=== PATIENT | male | born 1950 | race Hispanic/Latino ===

== ENCOUNTER 2017-11-17 01:41 | Inpatient (IN) | payer MEDICARE ==
[2017-11-17] MEDS ORDERED: Heparin25000 units/250ml 1/2NS 25,000 UNITS/250 ML BAG IV STA (01:51)
--- NOTE | 2017-11-17 01:51 | C.PDOC ---
History Of Present Illness pt presents with sudden onset of chest pain which started around 11pm. When ems arrived, 324asa and sl ntg given. poss iwmi Time Seen by Provider: 11/17/17 01:51 Chief Complaint (Nursing): Chest Pain History Per: Patient, EMS History/Exam Limitations: no limitations Onset/Duration Of Symptoms: Hrs Current Symptoms Are (Timing): Worse Context: Other Severity: Severe Pain Scale Rating Of: 9 Quality: Sharp, Tightness, Pressure Associated Symptoms: Nausea. denies: Dyspnea Modifying Factors: None Exacerbating Factors: None Alleviating Factors: None Nitro Therapy Administered: 2, Per EMS Recent travel outside of the [place]: No Additional History Per: EMS Past Medical History Reviewed: Historical Data, Nursing Documentation, Vital Signs Vital Signs: Last Vital Signs Temp 98.5 F 11/17/17 01:45 Pulse 108 H 11/17/17 01:45 Resp 18 11/17/17 01:45 BP 126/96 H 11/17/17 01:45 Pulse Ox 100 11/17/17 01:59 Family History: States: No Known Family Hx - Social History Hx Alcohol Use: No Hx Substance Use: No Review Of Systems Constitutional: Negative for: Fever, Chills Eyes: Negative for: Redness ENT: Negative for: Throat Pain Cardiovascular: Positive for: Chest Pain. Negative for: Palpitations Respiratory: Negative for: Shortness of Breath Gastrointestinal: Positive for: Nausea. Negative for: Vomiting, Abdominal Pain Genitourinary: Negative for: Dysuria Musculoskeletal: Negative for: Back Pain Skin: Negative for: Rash Neurological: Negative for: Weakness Psych: Positive for: Anxiety Physical Exam - Physical Exam Appears: In Acute Distress Skin: Warm, Dry Head: Normacephalic Eye(s): bilateral: Normal Inspection Oral Mucosa: Moist Neck: Supple Chest: Symmetrical Cardiovascular: Rhythm Regular Respiratory: No Rales, Rhonchi (few), No Wheezing Gastrointestinal/Abdominal: Soft, No Tenderness, Distention, No Guarding, Hernia (mid line) Back: Normal Inspection Extremity: Normal ROM Extremity: Bilateral: Atraumatic Pulses: Left Dorsalis Pedis: Normal, Right Dorsalis Pedis: Normal Neurological/Psych: Oriented x3, Normal Speech, Normal Cognition Gait: Unable To Assess ED Course And Treatment - Laboratory Results Result Diagrams: 11/17/17 01:55 11/17/17 01:55 ECG: Interpreted By Me, Viewed By Me ECG Rhythm: ST/T Changes (acyte inf wall mi) O2 Sat by Pulse Oximetry: 100 Pulse Ox Interpretation: Normal - Radiology CXR: Interpreted by Me, Viewed By Me Progress Note: spoke with dr fabian @ 1:36 AM Code heart activated. Pt continues with severe left sided chest pain, vitals stable Critical Care Time - Critical Care Note Total Time (in mins): 30 Documented critical care: time excludes all time spent performing seperately billable procedures. Disposition Discussed With DrIvone: Roni Wise Comment: accepted the pt on his service and took over the care at 2:14 AM Doctor Will See Patient In The: Hospital Counseled Patient/Family Regarding: Studies Performed, Diagnosis - Disposition Disposition: HOSPITALIZED Disposition Time: 01:51 Condition: GUARDED Forms: [facility] (Nepali) - POA Present On Arrival: Poor Glycemic Control Core Measure Indicators: Code Heart - Clinical Impression Clinical Impression: Acute inferior myocardial infarction Decision To Admit - Pt Status Changed To: Hospital Disposition Of: Inpatient - Admit Certification Admit to Inpatient:: After my assessment, the patient will require hospitalization for at least two midnights. This is because of the severity of symptoms shown, intensity of services needed, and/or the medical risk in this patient being treated as an outpatient. - InPatient: Physician Admission Certification: I certify that this patient requires 2 or more midnights of care for the following reason:: After my assessment, the patient will require hospitalization for at least two midnights. This is because of the severity of symptoms shown, intensity of services needed, and/or the medical risk in this patient being treated as an outpatient. - . Bed Request Type: ICU Admitting Physician: Roni Wise Patient Diagnosis: Acute inferior myocardial infarction
[2017-11-17 01:53] VITALS: BMI 32.1
[2017-11-17 02:02] LABS: BASO # 0.1 K/uL (0.0-0.2); BASO % 0.5 % (0.0-2.0); EOS # 0.3 K/uL (0.0-0.7); EOS % 2.3 % (0.0-4.0); HEMOGLOBIN 12.5 g/dL (12.0-18.0); LYMPH # 1.4 K/uL (1.0-4.3); LYMPH % 12.9 % (20.0-40.0); MEAN CELL VOLUME 83.2 fL (80.0-94.0); MEAN CORPUSCULAR HEMOGLOBIN 27.8 pg (27.0-31.0); MEAN CORPUSCULAR HGB CONC 33.4 g/dL (33.0-37.0); MEAN PLATELET VOLUME 8.1 fL (7.2-11.7); MONO # 0.8 K/uL (0.0-0.8); MONO % 7.5 % (0.0-10.0); NEUT # 8.5 K/uL (1.8-7.0); NEUT % 76.8 % (50.0-75.0); NRBC % 0.1 % (0.0-2.0); RBC 4.51 Mil/uL (4.40-5.90); RED CELL DISTRIBUTION WIDTH 15.9 % (11.5-14.5); WHITE BLOOD COUNT 11.1 K/uL (4.8-10.8)
[2017-11-17 02:05] LABS: INR 1.1; PROTHROMBIN TIME 12.7 SECONDS (9.7-12.2)
[2017-11-17 02:10] LABS: ALB/GLOB RATIO 1.1 (1.0-2.1); ALBUMIN 4.1 g/dL (3.5-5.0); ALT/SGPT 28 U/L (21-72); AST/SGOT 36 U/L (17-59); BLOOD UREA NITROGEN 19 mg/dL (9-20); CALCIUM 9.4 mg/dl (8.6-10.4); GFR AFRICAN-AMERICAN > 60; GFR NON-AFRICAN AMERICAN 55
[2017-11-17 02:23] LABS: B-TYPE NATRIURETIC PEPTIDE 295 pg/mL (0-900); CK-MB 1.97 ng/mL (0.0-3.38)
[2017-11-17] MEDS ORDERED: Midazolam 2 MG/2 ML VIAL ONE (02:25)
[2017-11-17] MEDS ORDERED: Morphine 4 MG/ML VIAL IV STA (02:30)
[2017-11-17] MEDS ORDERED: Phenylephrine 10 mg/ml Inj ONE (02:45)
[2017-11-17] MEDS ORDERED: Lidocaine 2 Grams in D5W 2,000 MG/500 ML BAG IV ONE (02:52)
[2017-11-17] MEDS ORDERED: Lidocaine 2 Grams in D5W 2,000 MG/500 ML BAG IV SCH (03:15)
[2017-11-17] MEDS ORDERED: oxyCODONE 5 mg Immediate Release Tab PO PRN (03:21)
--- NOTE | 2017-11-17 03:37 | CP.PCM.CON ---
History of Present Illness - History of Present Illness History of Present Illness: 67 M with hx of HTN, DM, Tobacco use presented with Acute Anterior wall STEMI Acute systolic CHF (EF 15%) V Tach (In Mid Level Developer) S/P Cath and LAD JESSICA on IABP Plan: IABP Bed rest IV Heparin with protocol, ASA, Brilinta, Statin, b abad, ARB, ISS, pepcid, Lidocaine drip ROMIs Daily EKGs Monitor lytes, CBC, check lipids ECHO LifeVest 1. L Main: Patent 2. LAD Prox 100% (PCI with 4.0 x 18 JESSICA) 3. L Cx: patent 4. RCA: Dominnat and patent 5. LV EF: 15%, Dilated ischemic CMP Past Patient History - Past Social History Smoking Status: Light Smoker < 10 Cigarettes Daily - ENDOCRINE/METABOLIC Hx Endocrine Disorders: Yes Hx Diabetes Mellitus Type 2: Yes - PSYCHIATRIC Hx Substance Use: No - SURGICAL HISTORY Hx Surgeries: No Meds Allergies/Adverse Reactions: Allergies Allergy/AdvReac Type Severity Reaction Status Date / Time Penicillins Allergy Verified 11/17/17 01:44 - Medications Medications: Current Medications Acetaminophen (Tylenol 325mg Tab) 650 mg PO Q6 PRN PRN Reason: Pain, Mild (1-3) Aspirin (Ecotrin) 81 mg PO DAILY OLINDA Carvedilol (Coreg) 3.125 mg PO BID OLINDA Famotidine (Pepcid) 20 mg PO BID OLINDA Heparin Sodium/Sodium Chloride (Heparin 90371 Units/250ml 1/2 Normal Saline) 25 ,000 units in 250 mls @ 20.412 mls/hr IV .[id number] PRN; Protocol; 18 UNITS/KG/HR PRN Reason: ADJUST RATE PER PROTOCOL Lidocaine HCl/Dextrose (Lidocaine 2 Grams In D5w) 2,000 mg in 500 mls @ 30 mls/ hr IV .[id number] OLINDA; 2 MG/MIN PRN Reason: Protocol Insulin Aspart (Novolog) 0 unit SC ACHS OLINDA PRN Reason: Protocol Insulin Human Regular (Novolin R) unit SC ACHS OLINDA PRN Reason: Protocol Losartan Potassium (Cozaar) 25 mg PO DAILY OLINDA Oxycodone HCl (Oxycodone Immediate Release Tab) 5 mg PO Q6 PRN PRN Reason: Pain, moderate (4-7) Rosuvastatin Calcium (Crestor) 40 mg PO HS OLINDA Ticagrelor (Brilinta) 90 mg PO BID OLINDA Results - Vital Signs Recent Vital Signs: Last Vital Signs Temp 98.5 F 11/17/17 01:45 Pulse 136 H 11/17/17 02:04 Resp 12 11/17/17 02:04 BP 127/86 11/17/17 02:04 Pulse Ox 100 11/17/17 02:17 - Labs Result Diagrams: 11/17/17 01:55 11/17/17 01:55 Labs: Laboratory Results - last 24 hr 11/17/17 11/17/17 11/17/17 01:48 01:55 01:55 WBC 11.1 H RBC 4.51 Hgb 12.5 Hct 37.5 MCV 83.2 MCH 27.8 MCHC 33.4 RDW 15.9 H Plt Count 244 MPV 8.1 Neut % (Auto) 76.8 H Lymph % (Auto) 12.9 L [place] % (Auto) 7.5 Eos % (Auto) 2.3 Baso % (Auto) 0.5 Neut # (Auto) 8.5 H Lymph # (Auto) 1.4 [place] # (Auto) 0.8 Eos # (Auto) 0.3 Baso # (Auto) 0.1 PT 12.7 H INR 1.1 APTT 33 Sodium 144 Potassium 5.5 H Chloride 106 Carbon Dioxide 22 Anion Gap 21 H BUN 19 Creatinine 1.3 Est GFR ( Amer) > 60 Est GFR (Non-Af Amer) 55 Random Glucose 284 H Hemoglobin A1c Calcium 9.4 Total Bilirubin 0.4 AST 36 ALT 28 Alkaline Phosphatase 139 H Total Creatine Kinase 76 CK-MB (Mass) 1.97 Troponin I 0.1130 NT-Pro-B Natriuret Pep 295 Total Protein 7.9 Albumin 4.1 Globulin 3.8 Albumin/Globulin Ratio 1.1 Blood Type Antibody Screen 11/17/17 11/17/17 01:55 01:56 WBC RBC Hgb Hct MCV MCH MCHC RDW Plt Count MPV Neut % (Auto) Lymph % (Auto) [place] % (Auto) Eos % (Auto) Baso % (Auto) Neut # (Auto) Lymph # (Auto) [place] # (Auto) Eos # (Auto) Baso # (Auto) PT INR APTT Sodium Potassium Chloride Carbon Dioxide Anion Gap BUN Creatinine Est GFR ( Amer) Est GFR (Non-Af Amer) Random Glucose Hemoglobin A1c 8.3 H Calcium Total Bilirubin AST ALT Alkaline Phosphatase Total Creatine Kinase CK-MB (Mass) Troponin I NT-Pro-B Natriuret Pep Total Protein Albumin Globulin Albumin/Globulin Ratio Blood Type O POSITIVE Antibody Screen Negative
[2017-11-17] MEDS ORDERED: Metoprolol 1 mg/ml Inj IVP ONE (03:56)
[2017-11-17] MEDS ORDERED: Iodixanol 320 MG/ML 200 ML BOTTLE IV ONE (04:04)
--- NOTE | 2017-11-17 04:05 | CP.PCM.CON ---
Addendum entered and electronically signed by Oliver Chandra DO 11/17/17 18:04: Update during the day: Patient with congestion and shortness of breath in the early afternoon. CXR revealed venous congestion. Dyspnea relieved with IV lasix and being placed on BiPAP. Nitro drip was also started to reduce strain on the heart. Per cardiology , continue Lidocaine drip until tomorrow morning due to V-tach seen during PCI. Cardiology will evaluate the echocardiogram images before deciding when to remove the balloon pump. Per echo report: * patient with EF 20-25% * severe hypokinesis of anteroapical wall * Right ventricle dilated but function preserved. * Hyperechoic area anterior to right ventricle may be a loculated effusion Patient to be evaluated for Life Vest. Original Note: History of Present Illness - History of Present Illness History of Present Illness: 67 y/o male with pmx of DM, h/o DVT, h/o DM and h/o smoking presents to [facility] with c/o chest pain. Patient was dx with STEMI s/p cath. Post cath, patient denies any chest pain. As per Dr. 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 -In ICU, patient was on IABP, with IV lidoacine and IV heparin Pmx: DM, h/o DVT, h/o kidney stones Allergic: PCn and "spinach" Social history: (+)smoking Review of Systems - Review of Systems Review of Systems: as per HPI Past Patient History - Past Medical History & Family History Past Medical History?: Yes Past Family History: Reviewed and not pertinent - Past Social History Smoking Status: Light Smoker < 10 Cigarettes Daily - ENDOCRINE/METABOLIC Hx Endocrine Disorders: Yes Hx Diabetes Mellitus Type 2: Yes - PSYCHIATRIC Hx Substance Use: No - SURGICAL HISTORY Hx Surgeries: No Meds Allergies/Adverse Reactions: Allergies Allergy/AdvReac Type Severity Reaction Status Date / Time Penicillins Allergy Verified 11/17/17 01:44 - Medications Medications: Current Medications Acetaminophen (Tylenol 325mg Tab) 650 mg PO Q6 PRN PRN Reason: Pain, Mild (1-3) Aspirin (Ecotrin) 81 mg PO DAILY OLINDA Carvedilol (Coreg) 3.125 mg PO BID OLINDA Famotidine (Pepcid) 20 mg PO BID OLINDA Heparin Sodium/Sodium Chloride (Heparin 86668 Units/250ml 1/2 Normal Saline) 25 ,000 units in 250 mls @ 20.412 mls/hr IV .[id number] PRN; Protocol; 18 UNITS/KG/HR PRN Reason: ADJUST RATE PER PROTOCOL Lidocaine HCl/Dextrose (Lidocaine 2 Grams In D5w) 2,000 mg in 500 mls @ 30 mls/ hr IV .[id number] OLINDA; 2 MG/MIN PRN Reason: Protocol Insulin Aspart (Novolog) 0 unit SC ACHS OLINDA PRN Reason: Protocol Insulin Human Regular (Novolin R) unit SC ACHS OLINDA PRN Reason: Protocol Losartan Potassium (Cozaar) 25 mg PO DAILY OLINDA Metoprolol Tartrate (Lopressor) 5 mg IVP ONCE ONE Stop: 11/17/17 03:57 Oxycodone HCl (Oxycodone Immediate Release Tab) 5 mg PO Q6 PRN PRN Reason: Pain, moderate (4-7) Rosuvastatin Calcium (Crestor) 40 mg PO HS OLINDA Ticagrelor (Brilinta) 90 mg PO BID OLINDA Patient does not remember his home medications name or dosage Physical Exam - Head Exam Head Exam: ATRAUMATIC, NORMAL INSPECTION, NORMOCEPHALIC - Eye Exam Eye Exam: EOMI - ENT Exam ENT Exam: Mucous Membranes Moist - Respiratory Exam Respiratory Exam: Clear to Auscultation Bilateral, NORMAL BREATHING PATTERN - Cardiovascular Exam Cardiovascular Exam: Tachycardia, +S1, +S2 - GI/Abdominal Exam GI & Abdominal Exam: Normal Bowel Sounds, Soft - Extremities Exam Extremities exam: Positive for: normal inspection Additional comments: right femoral IABP no bleeding at site Results - Vital Signs Recent Vital Signs: Last Vital Signs Temp 98.5 F 11/17/17 01:45 Pulse 136 H 11/17/17 02:04 Resp 12 11/17/17 02:04 BP 127/86 11/17/17 02:04 Pulse Ox 100 11/17/17 02:17 - Labs Result Diagrams: 11/17/17 01:55 11/17/17 01:55 Labs: Laboratory Results - last 24 hr 11/17/17 11/17/17 11/17/17 01:48 01:55 01:55 WBC 11.1 H RBC 4.51 Hgb 12.5 Hct 37.5 MCV 83.2 MCH 27.8 MCHC 33.4 RDW 15.9 H Plt Count 244 MPV 8.1 Neut % (Auto) 76.8 H Lymph % (Auto) 12.9 L [place] % (Auto) 7.5 Eos % (Auto) 2.3 Baso % (Auto) 0.5 Neut # (Auto) 8.5 H Lymph # (Auto) 1.4 [place] # (Auto) 0.8 Eos # (Auto) 0.3 Baso # (Auto) 0.1 PT 12.7 H INR 1.1 APTT 33 Sodium 144 Potassium 5.5 H Chloride 106 Carbon Dioxide 22 Anion Gap 21 H BUN 19 Creatinine 1.3 Est GFR ( Amer) > 60 Est GFR (Non-Af Amer) 55 Random Glucose 284 H Hemoglobin A1c Calcium 9.4 Total Bilirubin 0.4 AST 36 ALT 28 Alkaline Phosphatase 139 H Total Creatine Kinase 76 CK-MB (Mass) 1.97 Troponin I 0.1130 NT-Pro-B Natriuret Pep 295 Total Protein 7.9 Albumin 4.1 Globulin 3.8 Albumin/Globulin Ratio 1.1 Blood Type Antibody Screen 11/17/17 11/17/17 01:55 01:56 WBC RBC Hgb Hct MCV MCH MCHC RDW Plt Count MPV Neut % (Auto) Lymph % (Auto) [place] % (Auto) Eos % (Auto) Baso % (Auto) Neut # (Auto) Lymph # (Auto) [place] # (Auto) Eos # (Auto) Baso # (Auto) PT INR APTT Sodium Potassium Chloride Carbon Dioxide Anion Gap BUN Creatinine Est GFR ( Amer) Est GFR (Non-Af Amer) Random Glucose Hemoglobin A1c 8.3 H Calcium Total Bilirubin AST ALT Alkaline Phosphatase Total Creatine Kinase CK-MB (Mass) Troponin I NT-Pro-B Natriuret Pep Total Protein Albumin Globulin Albumin/Globulin Ratio Blood Type O POSITIVE Antibody Screen Negative - EKG Data EKG shows normal: ST-T waves Rate: Tachycardia - EKG Data Interpretation: Acute Ischemia Assessment & Plan - Assessment and Plan (Free Text) Assessment: STEMI: post PCI JESSICA: continue DAPT, continue IV heparin, continue IABP as per cardiology 1. L Main: Patent 2. LAD Prox 100% (PCI with 4.0 x 18 JESSICA) 3. L Cx: patent 4. RCA: Dominnat and patent 5. LV EF: 15%, Dilated ischemic CMP -at risk of V-tach: start av corina abad -h/o DM: hold metformin, BGM q6hrs, ISS lispro -hyperpotassemia: repeat potassium, mag/phos -COPD: monitor not in distress, no wheezing, breathing comfortably, CXR pending -dvt ppx IV heparin -PUD ppx pepcid Continue to monitor paitent in ICU post cath on IABP. Multiple diagnostic tests pending - Date & Time Date: 11/17/17 Time: 04:10
[2017-11-17 06:03] LABS: BLOOD UREA NITROGEN 20 mg/dL (9-20)
[2017-11-17 06:13] LABS: LDL CHOLESTEROL 114 mg/dL (0-129)
[2017-11-17 06:17] LABS: ALBUMIN 3.7 g/dL (3.5-5.0); ALT/SGPT 157 U/L (21-72); CALCIUM 8.1 mg/dl (8.6-10.4); CK-MB 330 ng/mL (0.0-3.38); GFR AFRICAN-AMERICAN > 60; GFR NON-AFRICAN AMERICAN > 60; HDL CHOLESTEROL 34 mg/dL (30-70)
[2017-11-17 06:35] LABS: AST/SGOT 1005 U/L (17-59)
--- NOTE | 2017-11-17 07:01 | RAD ---
HISTORY: chest pain COMPARISON: No prior. FINDINGS: LUNGS: Bilateral upper lobe infiltrates are identified in the right greater than left with subtle increase in diffuse interstitial markings, particularly in the periphery. PLEURA: No significant pleural effusion identified, no pneumothorax apparent. CARDIOVASCULAR: Cardiac size is normal. Borderline pulmonary venous congestion. OSSEOUS STRUCTURES: No significant abnormalities. VISUALIZED UPPER ABDOMEN: Normal. OTHER FINDINGS: None. IMPRESSION: Bilateral pulmonary infiltrates right greater than left upper lobes with interstitial changes noted diffusely as well. No prior comparison available. Consider mixed alveolar/interstitial process though limited CHF underlying pneumonia is not completely excluded. Clinically correlate further.
--- NOTE | 2017-11-17 07:17 | CP.PCM.PN ---
Subjective - Date & Time of Evaluation Date of Evaluation: 11/17/17 Time of Evaluation: 07:03 - Subjective Subjective: PGY-[address] Hsieh's Cardiology Service: Pt seen and examined at bedside. Nursing reports no acute events overnight. Objective - Vital Signs/Intake and Output Vital Signs (last 24 hours): Temp Pulse Resp BP Pulse Ox 98.5 F 136 H 12 127/86 100 11/17/17 01:45 11/17/17 02:04 11/17/17 02:04 11/17/17 02:04 11/17/17 02:17 - Medications Medications: Current Medications Acetaminophen (Tylenol 325mg Tab) 650 mg PO Q6 PRN PRN Reason: Pain, Mild (1-3) Aspirin (Ecotrin) 81 mg PO DAILY [facility] Carvedilol (Coreg) 3.125 mg PO BID OLINDA Famotidine (Pepcid) 20 mg PO BID OLINDA Famotidine (Pepcid) 20 mg IVP DAILY [facility] Heparin Sodium/Sodium Chloride (Heparin 21508 Units/250ml 1/2 Normal Saline) 25 ,000 units in 250 mls @ 20.412 mls/hr IV .[id number] PRN; Protocol; 18 UNITS/KG/HR PRN Reason: ADJUST RATE PER PROTOCOL Lidocaine HCl/Dextrose (Lidocaine 2 Grams In D5w) 2,000 mg in 500 mls @ 30 mls/ hr IV .[id number] OLINDA; 2 MG/MIN PRN Reason: Protocol Sodium Chloride (Sodium Chloride 0.9%) 1,000 mls @ 42 mls/hr IV .[id number] [facility] Insulin Aspart (Novolog) 0 unit SC Q6 OLINDA PRN Reason: Protocol Losartan Potassium (Cozaar) 25 mg PO DAILY [facility] Morphine Sulfate (Morphine) 3 mg IV Q6 PRN PRN Reason: Pain, severe (8-10) Oxycodone HCl (Oxycodone Immediate Release Tab) 5 mg PO Q6 PRN PRN Reason: Pain, moderate (4-7) Rosuvastatin Calcium (Crestor) 40 mg PO HS OLINDA Ticagrelor (Brilinta) 90 mg PO BID [facility] - Labs Labs: 11/17/17 01:55 11/17/17 02:56 PT 12.7 SECONDS (9.7-12.2) H 11/17/17 01:48 INR 1.1 11/17/17 01:48 APTT 160 SECONDS (21-34) H* D 11/17/17 05:21 Assessment and Plan - Assessment and Plan (Free Text) Plan: STEMI Admit to ICU S/P Cath and LAD JESSICA Troponin (0.113 -> 460.00 - f/u 3rd AMY EKG (11/16/17): SIMRAN Lipid panel: LDL 114, HDL 34, T Chol 168, TG 146 TSH/Free T4: WNL Coreg 3.125mg PO BID ASA 81mg PO Daily Brilinta 90mg PO BID Crestor 40mg PO HS Losartan 25mg PO Daily Lidocaine Drip Heparin Drip Acute systolic CHF Cath: (EF 15%) CXR (11/16/17): B/l pulm infiltrates (R>L) upper lobes w interstitial changes noted diffusely. Mixed alveolar interstitial process though limited CHF underlying PNA not completely excluded. 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 Hsieh
[2017-11-17] MEDS ORDERED: (Novolog) Insulin Aspart, Recombinant 100 u/ml 10 ml vial SC SCH (07:30)
[2017-11-17] MEDS ORDERED: (Novolin R) Insulin Human Regular 100 units/ml vial SC SCH (07:30)
[2017-11-17] MEDS: Lidocaine 2 Grams in D5W 2,000 MG/500 ML BAG IV SCH ×2 (07:42→21:29)
[2017-11-17] MEDS: (Novolog) Insulin Aspart, Recombinant 100 u/ml 10 ml vial SC SCH ×4 (07:43→18:18)
[2017-11-17] MEDS: Sodium Chloride 0.9% 1,000 ML IV SCH ×2 (07:44→08:00)
[2017-11-17] MEDS: Heparin25000 units/250ml 1/2NS 25,000 UNITS/250 ML BAG IV PRN ×2 (08:00→21:22)
[2017-11-17] MEDS ORDERED: D5W IV ONE (10:00)
[2017-11-17] MEDS ORDERED: Enoxaparin 40 mg Syringe SC SCH (10:00)
[2017-11-17] MEDS ORDERED: HEPARIN IV ONE (10:00)
[2017-11-17] MEDS ORDERED: Nitroglycerin 50mg in D5W 50 MG/250 ML BOTTLE IV SCH (13:15)
--- NOTE | 2017-11-17 13:17 | RAD ---
HISTORY: post IABP COMPARISON: 11/17/2017 at 4:50 a.m. FINDINGS: LUNGS: Extensive right upper lobe infiltrate. Not significantly changed from prior examination. There is also increasing right basilar infiltrate medially. No left-sided infiltrate. PLEURA: No significant pleural effusion identified, no pneumothorax apparent. CARDIOVASCULAR: Normal. OSSEOUS STRUCTURES: No significant abnormalities. VISUALIZED UPPER ABDOMEN: Normal. OTHER FINDINGS: None. IMPRESSION: Extensive right upper lobe infiltrate. Medial right basilar infiltrate.
[2017-11-17 13:24] LABS: SQUAMOUS EPITHIAL < 1 /hpf (0-5); URINE BACTERIA RARE (<OCC); URINE BILIRUBIN NEGATIVE (NEGATIVE); URINE BLOOD 3+ (NEGATIVE); URINE CLARITY Hazy (Clear); URINE COLOR Yellow (YELLOW); URINE GLUCOSE (UA) NORMAL (Normal); URINE LEUKOCYTE ESTERASE NEG Leu/uL (Negative); URINE PROTEIN 1+ mg/dL (NEGATIVE); URINE UROBILINOGEN NORMAL mg/dL (0.2-1.0)
[2017-11-17 13:25] LABS: BARBITURATES, UR NEGATIVE (NEGATIVE); PHENCYCLIDINE, UR NEGATIVE (NEGATIVE)
[2017-11-17 13:45] LABS: BENZODIAZEPINES, UR POSITIVE (NEGATIVE); OPIATES, UR POSITIVE (NEGATIVE)
[2017-11-17] MEDS: Albuterol-Ipratrop 3 mg / 0.5 (3 ml) UD INH SCH ×4 (13:51→23:51)
--- NOTE | 2017-11-17 17:37 | CARD ---
APPROVED REPORT EXAM: Two-dimensional and M-mode echocardiogram with Doppler and color Doppler. INDICATION Acute ME CODE HEART RISK FACTORS Hypertension Obesity Diabetes 2D DIMENSIONS IVSd1.7 (0.7-1.1cm)LVDd4.1 (3.9-5.9cm) PWd1.1 (0.7-1.1cm)LVDs3.7 (2.5-4.0cm) FS (%) 11.6 %LVEF (%)25.5 (>50%) M-Mode DIMENSIONS RVDd2.81 (2.1-3.2cm)Left Atrium (MM)4.06 (2.5-4.0cm) Aortic Root2.97 (2.2-3.7cm)Aortic Cusp Exc.1.92 (1.5-2.0cm) Mitral Valve MV E Hwrstypp09.2cm/sMV A Jrtfabdm56.2cm/sE/A ratio1.4 TDI E/Lateral E'0.0E/Medial E'0.0 Tricuspid Valve TR Peak Pjorvpdk901pj/sTR Peak Gr.[id number] LEFT VENTRICLE The Left Ventricle is mildly dilated. There is mild concentric left ventricular hypertrophy. The systolic function is moderately to severely impaired. The Ejection Fraction is 20-25%. There is moderate to severe hypokinesis in the anteroapical wall compatible with coronary heart disease. Transmitral Doppler flow pattern is Grade II-pseudonormal filling dynamics. Elevated left atrial pressure. RIGHT VENTRICLE The right ventricle is moderately dilated with apical hypokinesis. The right ventricular systolic function is normal. ATRIA The left atrium size is normal. The right atrium size is normal. AORTIC VALVE The aortic valve is normal in structure. No aortic regurgitation is present. MITRAL VALVE The mitral valve is normal in structure. There is no mitral valve regurgitation noted. TRICUSPID VALVE The tricuspid valve is normal in structure. There is mild tricuspid regurgitation. PULMONIC VALVE The pulmonic valve is not well visualized. GREAT VESSELS The aortic root is normal in size. Dilated IVC with poor inspiration collapse is consistent with elevated right atrial pressure. PERICARDIAL EFFUSION Pericardium appears moderately thickened at the apex Hypoechoic area anterior to right ventricle may be a loculated effusion. Follow up and clinical correlation suggested. <Conclusion> There is mild concentric left ventricular hypertrophy. The systolic function is moderately to severely impaired. The Ejection Fraction is 20-25%. There is moderate to severe hypokinesis in the anteroapical wall compatible with coronary heart disease. The right ventricle is moderately dilated with apical hypokinesis but overall function appears preserved. Pericardium appears moderately thickened at the apex Hypoechoic area anterior to right ventricle may be a loculated effusion. Follow up and clinical correlation suggested.
[2017-11-17] MEDS ORDERED: Tramadol 25 mg PO PRN (18:39)
--- NOTE | 2017-11-17 19:51 | CARDCATH ---
PROCEDURE DATE: 11/17/2017 PROCEDURES: 1. Left heart catheterization with coronary angiogram. 2. Left anterior descending coronary artery angioplasty and drug-eluting stent placement. 3. Intraaortic balloon pump placement. REFERRING PHYSICIAN: Roni Wise MD PERFORMING PHYSICIAN: James Hsieh MD CLINICAL INDICATIONS: 1. Code heart. 2. Acute anterior wall ST elevation myocardial infarction. 3. Chest pain. 4. Hypertension. 5. Acute systolic congestive heart failure. 6. Hyperlipidemia. BRIEF CLINICAL HISTORY: Jr De La Garza is a 67-year-old gentleman with a history of hypertension, diabetes, hyperlipidemia, and tobacco use presented to the [facility] Emergency Room in the early hours with severe 10/10 chest pain radiating to the left shoulder. Subsequent EKG had revealed the patient has an acute ST elevation anterior wall myocardial infarction. Code heart was activated. PROCEDURE: After informed consent, the patient was prepped and draped in the usual sterile fashion. A 2% lidocaine was given in the right groin for local anesthesia. Using micropuncture technique, a 6-Faroese sheath was introduced into the right common femoral artery. JL4 6-Faroese diagnostic catheter was inserted into the left ventricle across the aortic valve. LV end-diastolic pressure was measured. Contrast was injected and LV angiogram was done. Then the catheter was pulled back across the aortic valve. Gradient across the aortic valve was measured, and the catheter was engaged in the coronary artery. Contrast was injected and right coronary angiogram was done. The patient was premedicated with aspirin 325, Brilinta 180, and IV heparin. A 6 Faroese XBLAD 3.5 guide catheter was engaged into the left main coronary artery. Contrast was injected and left coronary angiogram was performed. FINDINGS: Left heart catheterization: 1. Left main coronary artery is patent. 2. Proximal LAD is 100% occluded. There was MARILEE-0 flow distally. 3. Left circumflex is patent. 4. Right coronary artery is dominant and patent. 5. Dilated ischemic left ventricle. Severe global hypokinesis. Ejection fraction approximately 15% to 20%. EDV was 24. LAD INTERVENTION: LAD threaded with run-through coronary wire. The lesion was predilated using 2.5 x 12 compliant, and the patient started having sustained ventricular tachycardia. However, the patient maintained the blood pressure. Lidocaine 100 mg x2 boluses were given and lidocaine drip was started. One bolus of Integrilin was given. Then the lesion was stented with 4.0 x 18 Xience Alpine drug-eluting stent. Excellent final angiographic results with brisk MARILEE-3 flow noted. However, the patient's blood pressure was low, and the patient also has a severely ischemic dilated cardiomyopathy. A 50 mL intraaortic balloon pump was then inserted for cardioprotection. The patient tolerated the entire procedure reasonably well. The patient currently is on heparin drip and lidocaine drip. The patient will be transferred to intensive care unit for further management. James Hsieh MD
--- NOTE | 2017-11-18 01:14 | CP.PCM.HP ---
History of Present Illness - History of Present Illness History of Present Illness: CC: chest pain HPI: 67 y/o white male with pmx of DM, h/o DVT, h/o DM and h/o smoking, quit 20 years ago presents to [facility] with c/o chest pain.Cde herat was initiated and stent was placed m Patient was dx with STEMI s/p cath. Post cath,pt developed CHF, he is on BIPAP, is diaphoretic, patient denies any chest pain, cough,sore throat. As per Dr. 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 -In ICU, patient was on IABP, with IV lidoacine and IV heparin Present on Admission - Present on Admission Any Indicators Present on Admission: Yes Review of Systems - Review of Systems Systems not reviewed;Unavailable: Acuity of Condition, Unstable Vital Signs - Constitutional Constitutional: Excessive Sweating, Lethargy, Malaise, Weakness - EENT Eyes: absent: As Per HPI, Blind Spots, Blurred Vision, Change in Vision, Decreased Night Vision, Diplopia, Discharge, Dry Eye, Exophthalmos, Floaters, Irritation, Itchy Eyes, Loss of Peripheral Vision, Pain, Photophobia, Requires Corrective Lenses, Sees Flashes, Spots in Vision, Tunnel Vision, Other Visual Disturbances, Loss of Vision, Other Ears: absent: As Per HPI, Decreased Hearing, Ear Discharge, Ear Pain, Tinnitus, Abnormal Hearing, Disequilibrium, Dizziness, Other Nose/Mouth/Throat: absent: As Per HPI, Epistaxis, Nasal Congestion, Nasal Discharge, Nasal Obstruction, Nasal Trauma, Nose Pain, Post Nasal Drip, Sinus Pain, Sinus Pressure, Bleeding Gums, Change in Voice, Dental Pain, Dry Mouth, Dysphagia, Halitosis, Hoarsness, Lip Swelling, Mouth Lesions, Mouth Pain, Odynophagia, Sore Throat, Throat Swelling, Tongue Swelling, Facial Pain, Neck Pain, Neck Mass, Other - Cardiovascular Cardiovascular: Chest Pain, Dyspnea - Respiratory Respiratory: absent: As Per HPI, Cough, Dyspnea, Hemoptysis, Dyspnea on Exertion , Wheezing, Snoring, Stridor, Pain on Inspiration, Chest Congestion, Excessive Mucous Production, Change in Mucous Color, Pain with Coughing, Other - Gastrointestinal Gastrointestinal: absent: As Per HPI, Abdominal Pain, Belching, Bloating, Change in Bowel Habits, Change in Stool Character, Coffee Ground Emesis, Constipation, Cramping, Diarrhea, Dyspepsia, Dysphagia, Early Satiety, Excessive Flatus, Fecal Incontinence, Heartburn, Hematemesis, Hematochezia, Loose Stools, Melena, Nausea, Odynophagia, Temesmus, Vomiting, Other Past Patient History - Past Medical History & Family History Past Medical History?: Yes - Past Social History Smoking Status: Former Smoker - ENDOCRINE/METABOLIC Hx Endocrine Disorders: Yes Hx Diabetes Mellitus Type 2: Yes - MUSCULOSKELETAL/RHEUMATOLOGICAL Hx Falls: No - GASTROINTESTINAL Other/Comment: [place] Disease - PSYCHIATRIC Hx Substance Use: No - SURGICAL HISTORY Hx Surgeries: No - ANESTHESIA Hx Anesthesia: Yes Hx Anesthesia Reactions: No Hx Malignant Hyperthermia: No Has any member of the family had a problem w/ anesthesia?: No Meds Allergies/Adverse Reactions: Allergies Allergy/AdvReac Type Severity Reaction Status Date / Time Penicillins Allergy Verified 11/17/17 01:44 Physical Exam - Constitutional Appears: No Acute Distress - Head Exam Head Exam: ATRAUMATIC, NORMAL INSPECTION, NORMOCEPHALIC - Eye Exam Eye Exam: EOMI, Normal appearance, PERRL Pupil Exam: NORMAL ACCOMODATION, PERRL - Respiratory Exam Respiratory Exam: Decreased Breath Sounds, Rales - Cardiovascular Exam Cardiovascular Exam: REGULAR RHYTHM, +S1, +S2, Systolic Murmur - GI/Abdominal Exam GI & Abdominal Exam: Normal Bowel Sounds, Soft. absent: Tenderness - Back Exam Back exam: NORMAL INSPECTION - Neurological Exam Neurological exam: Alert, CN II-XII Intact, Normal Gait, Oriented x3, Reflexes Normal Results - Vital Signs Recent Vital Signs: Last Vital Signs Temp 97.9 F 11/17/17 16:00 Pulse 95 H 11/18/17 00:02 Resp 15 11/18/17 00:02 BP 116/65 11/18/17 00:02 Pulse Ox 100 11/18/17 00:02 - Labs Result Diagrams: 11/17/17 01:55 11/17/17 02:56 Labs: Laboratory Results - last 24 hr 11/17/17 11/17/17 11/17/17 01:48 01:55 01:55 WBC 11.1 H RBC 4.51 Hgb 12.5 Hct 37.5 MCV 83.2 MCH 27.8 MCHC 33.4 RDW 15.9 H Plt Count 244 MPV 8.1 Neut % (Auto) 76.8 H Lymph % (Auto) 12.9 L [place] % (Auto) 7.5 Eos % (Auto) 2.3 Baso % (Auto) 0.5 Neut # (Auto) 8.5 H Lymph # (Auto) 1.4 [place] # (Auto) 0.8 Eos # (Auto) 0.3 Baso # (Auto) 0.1 PT 12.7 H INR 1.1 APTT 33 Sodium 144 Potassium 5.5 H Chloride 106 Carbon Dioxide 22 Anion Gap 21 H BUN 19 Creatinine 1.3 Est GFR ( Amer) > 60 Est GFR (Non-Af Amer) 55 POC Glucose (mg/dL) Random Glucose 284 H Hemoglobin A1c Lactic Acid Calcium 9.4 Phosphorus Magnesium Total Bilirubin 0.4 AST 36 ALT 28 Alkaline Phosphatase 139 H Total Creatine Kinase 76 CK-MB (Mass) 1.97 Troponin I 0.1130 NT-Pro-B Natriuret Pep 295 Total Protein 7.9 Albumin 4.1 Globulin 3.8 Albumin/Globulin Ratio 1.1 Triglycerides Cholesterol LDL Cholesterol Direct HDL Cholesterol Free T4 TSH 3rd Generation Urine Color Urine Clarity Urine pH Ur Specific [place] Urine Protein Urine Glucose (UA) Urine Ketones Urine Blood Urine Nitrate Urine Bilirubin Urine Urobilinogen Ur Leukocyte Esterase Urine WBC (Auto) Urine RBC (Auto) Ur Squamous Epith Cells Urine Bacteria Urine Opiates Screen Urine Methadone Screen Ur Barbiturates Screen Ur Phencyclidine Scrn Ur Amphetamines Screen U Benzodiazepines Scrn U Oth Cocaine Metabols U Cannabinoids Screen Blood Type Antibody Screen 11/17/17 11/17/17 11/17/17 01:55 01:56 02:56 WBC RBC Hgb Hct MCV MCH MCHC RDW Plt Count MPV Neut % (Auto) Lymph % (Auto) [place] % (Auto) Eos % (Auto) Baso % (Auto) Neut # (Auto) Lymph # (Auto) [place] # (Auto) Eos # (Auto) Baso # (Auto) PT INR APTT Sodium 141 Potassium 5.2 Chloride 108 H Carbon Dioxide 21 L Anion Gap 18 BUN 20 Creatinine 1.2 Est GFR ( Amer) > 60 Est GFR (Non-Af Amer) > 60 POC Glucose (mg/dL) Random Glucose 292 H Hemoglobin A1c 8.3 H Lactic Acid Calcium 8.1 L Phosphorus 2.7 Magnesium 1.6 Total Bilirubin 0.5 AST 1005 H ALT 157 H D Alkaline Phosphatase 123 Total Creatine Kinase 9206 H CK-MB (Mass) 330 H Troponin I 460.0000 H* NT-Pro-B Natriuret Pep Total Protein 7.2 Albumin 3.7 Globulin 3.5 Albumin/Globulin Ratio 1.0 Triglycerides 146 Cholesterol 168 LDL Cholesterol Direct 114 HDL Cholesterol 34 Free T4 TSH 3rd Generation 3.52 Urine Color Urine Clarity Urine pH Ur Specific [place] Urine Protein Urine Glucose (UA) Urine Ketones Urine Blood Urine Nitrate Urine Bilirubin Urine Urobilinogen Ur Leukocyte Esterase Urine WBC (Auto) Urine RBC (Auto) Ur Squamous Epith Cells Urine Bacteria Urine Opiates Screen Urine Methadone Screen Ur Barbiturates Screen Ur Phencyclidine Scrn Ur Amphetamines Screen U Benzodiazepines Scrn U Oth Cocaine Metabols U Cannabinoids Screen Blood Type O POSITIVE Antibody Screen Negative 11/17/17 11/17/17 11/17/17 05:21 05:21 05:21 WBC RBC Hgb Hct MCV MCH MCHC RDW Plt Count MPV Neut % (Auto) Lymph % (Auto) [place] % (Auto) Eos % (Auto) Baso % (Auto) Neut # (Auto) Lymph # (Auto) [place] # (Auto) Eos # (Auto) Baso # (Auto) PT INR APTT 160 H* D Sodium Potassium Chloride Carbon Dioxide Anion Gap BUN Creatinine Est GFR ( Amer) Est GFR (Non-Af Amer) POC Glucose (mg/dL) Random Glucose Hemoglobin A1c Lactic Acid 1.6 Calcium Phosphorus Magnesium Total Bilirubin AST ALT Alkaline Phosphatase Total Creatine Kinase CK-MB (Mass) Troponin I NT-Pro-B Natriuret Pep Total Protein Albumin Globulin Albumin/Globulin Ratio Triglycerides Cholesterol LDL Cholesterol Direct HDL Cholesterol Free T4 1.06 TSH 3rd Generation Urine Color Urine Clarity Urine pH Ur Specific [place] Urine Protein Urine Glucose (UA) Urine Ketones Urine Blood Urine Nitrate Urine Bilirubin Urine Urobilinogen Ur Leukocyte Esterase Urine WBC (Auto) Urine RBC (Auto) Ur Squamous Epith Cells Urine Bacteria Urine Opiates Screen Urine Methadone Screen Ur Barbiturates Screen Ur Phencyclidine Scrn Ur Amphetamines Screen U Benzodiazepines Scrn U Oth Cocaine Metabols U Cannabinoids Screen Blood Type Antibody Screen 11/17/17 11/17/17 11/17/17 05:21 09:32 11:29 WBC RBC Hgb Hct MCV MCH MCHC RDW Plt Count MPV Neut % (Auto) Lymph % (Auto) [place] % (Auto) Eos % (Auto) Baso % (Auto) Neut # (Auto) Lymph # (Auto) [place] # (Auto) Eos # (Auto) Baso # (Auto) PT INR APTT Sodium Potassium Chloride Carbon Dioxide Anion Gap BUN Creatinine Est GFR ( Amer) Est GFR (Non-Af Amer) POC Glucose (mg/dL) 247 H Random Glucose Hemoglobin A1c 8.5 H Lactic Acid Calcium Phosphorus Magnesium Total Bilirubin AST ALT Alkaline Phosphatase Total Creatine Kinase 8636 H CK-MB (Mass) 335 H Troponin I 474.0000 H* NT-Pro-B Natriuret Pep Total Protein Albumin Globulin Albumin/Globulin Ratio Triglycerides Cholesterol LDL Cholesterol Direct HDL Cholesterol Free T4 TSH 3rd Generation Urine Color Urine Clarity Urine pH Ur Specific [place] Urine Protein Urine Glucose (UA) Urine Ketones Urine Blood Urine Nitrate Urine Bilirubin Urine Urobilinogen Ur Leukocyte Esterase Urine WBC (Auto) Urine RBC (Auto) Ur Squamous Epith Cells Urine Bacteria Urine Opiates Screen Urine Methadone Screen Ur Barbiturates Screen Ur Phencyclidine Scrn Ur Amphetamines Screen U Benzodiazepines Scrn U Oth Cocaine Metabols U Cannabinoids Screen Blood Type Antibody Screen 11/17/17 11/17/17 11/17/17 12:36 12:36 12:54 WBC RBC Hgb Hct MCV MCH MCHC RDW Plt Count MPV Neut % (Auto) Lymph % (Auto) [place] % (Auto) Eos % (Auto) Baso % (Auto) Neut # (Auto) Lymph # (Auto) [place] # (Auto) Eos # (Auto) Baso # (Auto) PT INR APTT Sodium Potassium Chloride Carbon Dioxide Anion Gap BUN Creatinine Est GFR ( Amer) Est GFR (Non-Af Amer) POC Glucose (mg/dL) Random Glucose Hemoglobin A1c Lactic Acid 1.7 Calcium Phosphorus Magnesium Total Bilirubin AST ALT Alkaline Phosphatase Total Creatine Kinase CK-MB (Mass) Troponin I 434.0000 H* NT-Pro-B Natriuret Pep Total Protein Albumin Globulin Albumin/Globulin Ratio Triglycerides Cholesterol LDL Cholesterol Direct HDL Cholesterol Free T4 TSH 3rd Generation Urine Color Yellow Urine Clarity Hazy Urine pH 5.0 Ur Specific [place] 1.050 H Urine Protein 1+ H Urine Glucose (UA) Normal Urine Ketones Negative Urine Blood 3+ H Urine Nitrate Negative Urine Bilirubin Negative Urine Urobilinogen Normal Ur Leukocyte Esterase Neg Urine WBC (Auto) 1 Urine RBC (Auto) 7 H Ur Squamous Epith Cells < 1 Urine Bacteria Rare Urine Opiates Screen Urine Methadone Screen Ur Barbiturates Screen Ur Phencyclidine Scrn Ur Amphetamines Screen U Benzodiazepines Scrn U Oth Cocaine Metabols U Cannabinoids Screen Blood Type Antibody Screen 11/17/17 11/17/17 11/17/17 12:54 14:10 17:23 WBC RBC Hgb Hct MCV MCH MCHC RDW Plt Count MPV Neut % (Auto) Lymph % (Auto) [place] % (Auto) Eos % (Auto) Baso % (Auto) Neut # (Auto) Lymph # (Auto) [place] # (Auto) Eos # (Auto) Baso # (Auto) PT INR APTT 55 H D Sodium Potassium Chloride Carbon Dioxide Anion Gap BUN Creatinine Est GFR ( Amer) Est GFR (Non-Af Amer) POC Glucose (mg/dL) 263 H Random Glucose Hemoglobin A1c Lactic Acid Calcium Phosphorus Magnesium Total Bilirubin AST ALT Alkaline Phosphatase Total Creatine Kinase CK-MB (Mass) Troponin I NT-Pro-B Natriuret Pep Total Protein Albumin Globulin Albumin/Globulin Ratio Triglycerides Cholesterol LDL Cholesterol Direct HDL Cholesterol Free T4 TSH 3rd Generation Urine Color Urine Clarity Urine pH Ur Specific [place] Urine Protein Urine Glucose (UA) Urine Ketones Urine Blood Urine Nitrate Urine Bilirubin Urine Urobilinogen Ur Leukocyte Esterase Urine WBC (Auto) Urine RBC (Auto) Ur Squamous Epith Cells Urine Bacteria Urine Opiates Screen Positive H Urine Methadone Screen Negative Ur Barbiturates Screen Negative Ur Phencyclidine Scrn Negative Ur Amphetamines Screen Negative U Benzodiazepines Scrn Positive U Oth Cocaine Metabols Negative U Cannabinoids Screen Negative Blood Type Antibody Screen 11/17/17 11/17/17 11/17/17 21:05 21:30 21:37 WBC RBC Hgb Hct MCV MCH MCHC RDW Plt Count MPV Neut % (Auto) Lymph % (Auto) [place] % (Auto) Eos % (Auto) Baso % (Auto) Neut # (Auto) Lymph # (Auto) [place] # (Auto) Eos # (Auto) Baso # (Auto) PT INR APTT 60 H D Sodium Potassium Chloride Carbon Dioxide Anion Gap BUN Creatinine Est GFR ( Amer) Est GFR (Non-Af Amer) POC Glucose (mg/dL) 235 H Random Glucose Hemoglobin A1c Lactic Acid Calcium Phosphorus Magnesium Total Bilirubin AST ALT Alkaline Phosphatase Total Creatine Kinase CK-MB (Mass) Troponin I 328.0000 H* NT-Pro-B Natriuret Pep Total Protein Albumin Globulin Albumin/Globulin Ratio Triglycerides Cholesterol LDL Cholesterol Direct HDL Cholesterol Free T4 TSH 3rd Generation Urine Color Urine Clarity Urine pH Ur Specific [place] Urine Protein Urine Glucose (UA) Urine Ketones Urine Blood Urine Nitrate Urine Bilirubin Urine Urobilinogen Ur Leukocyte Esterase Urine WBC (Auto) Urine RBC (Auto) Ur Squamous Epith Cells Urine Bacteria Urine Opiates Screen Urine Methadone Screen Ur Barbiturates Screen Ur Phencyclidine Scrn Ur Amphetamines Screen U Benzodiazepines Scrn U Oth Cocaine Metabols U Cannabinoids Screen Blood Type Antibody Screen Assessment & Plan (1) Chest pain Status: Acute (2) HTN (hypertension) Status: Acute (3) Diabetes Status: Acute (4) Acute inferior myocardial infarction Assessment and Plan: CXR revealed venous congestion. Dyspnea relieved with IV lasix and being placed on BiPAP. Nitro drip was also started to reduce strain on the heart. Per cardiology, continue Lidocaine drip until tomorrow morning due to V-tach seen during PCI. Cardiology will evaluate the echocardiogram images before deciding when to remove the balloon pump. Per echo report: * patient with EF 20-25% * severe hypokinesis of anteroapical wall * Right ventricle dilated but function preserved. * Hyperechoic area anterior to right ventricle may be a loculated effusion Patient to be evaluated for Life Vest. Status: Acute
[2017-11-18] MEDS: Albuterol-Ipratrop 3 mg / 0.5 (3 ml) UD INH SCH ×4 (03:00→16:20)
[2017-11-18] MEDS: (Novolog) Insulin Aspart, Recombinant 100 u/ml 10 ml vial SC SCH ×3 (05:16→11:58)
[2017-11-18 05:27] LABS: BASO % 0.2 % (0.0-2.0); EOS % 0.3 % (0.0-4.0); HEMOGLOBIN 12.4 g/dL (12.0-18.0); LYMPH # 1.3 K/uL (1.0-4.3); LYMPH % 11.5 % (20.0-40.0); MEAN CORPUSCULAR HEMOGLOBIN 27.7 pg (27.0-31.0); MEAN PLATELET VOLUME 8.4 fL (7.2-11.7); MONO # 1.3 K/uL (0.0-0.8); MONO % 11.5 % (0.0-10.0); NEUT # 8.4 K/uL (1.8-7.0); NEUT % 76.5 % (50.0-75.0); NRBC % 0.1 % (0.0-2.0); RBC 4.48 Mil/uL (4.40-5.90); RED CELL DISTRIBUTION WIDTH 16.4 % (11.5-14.5)
[2017-11-18 06:03] LABS: ALBUMIN 3.6 g/dL (3.5-5.0); CALCIUM 8.8 mg/dl (8.6-10.4)
[2017-11-18] MEDS ORDERED: Sod Polystyrene Sulf 15 gm/60 ml Susp PO ONE (06:52)
[2017-11-18] MEDS ORDERED: Lidocaine 2 Grams in D5W 2,000 MG/500 ML BAG IV SCH (07:11)
[2017-11-18] MEDS: Albumin Human 25% (12.5 gm/50 ml) IV SCH ×3 (08:11→11:58)
--- NOTE | 2017-11-18 08:58 | CP.PCM.PN ---
Subjective - Date & Time of Evaluation Date of Evaluation: 11/18/17 Time of Evaluation: 08:00 - Subjective Subjective: Pt seen and examined at bedside Objective - Vital Signs/Intake and Output Vital Signs (last 24 hours): Temp Pulse Resp BP Pulse Ox 98.0 F 111 H 17 135/75 89 L 11/18/17 04:00 11/18/17 08:01 11/18/17 08:01 11/18/17 08:31 11/18/17 08:01 Intake and Output: 11/18/17 11/18/17 06:59 18:59 Intake Total 1442.7 94.5 Output Total 900 50 Balance 542.7 44.5 - Medications Medications: Current Medications Acetaminophen (Tylenol 325mg Tab) 650 mg PO Q6 PRN PRN Reason: Pain, Mild (1-3) Last Admin: 11/17/17 14:53 Dose: 650 mg Albumin Human (Albumin Human 25% (12.5 Gm/50 Ml)) 12.5 gm IV Q2H OLINDA Stop: 11/18/17 18:01 Last Admin: 11/18/17 08:11 Dose: 12.5 gm Albuterol/Ipratropium (Duoneb 3 Mg/0.5 Mg (3 Ml) Ud) 3 ml INH RQ4 [facility] Last Admin: 11/18/17 07:42 Dose: 3 ml Aspirin (Ecotrin) 81 mg PO DAILY [facility] Last Admin: 11/17/17 10:40 Dose: 81 mg Carvedilol (Coreg) 3.125 mg PO BID [facility] Last Admin: 11/17/17 17:28 Dose: 3.125 mg Furosemide (Lasix) 40 mg IVP Q12H OLINDA Last Admin: 11/18/17 08:31 Dose: 40 mg Heparin Sodium/Sodium Chloride (Heparin 32632 Units/250ml 1/2 Normal Saline) 25 ,000 units in 250 mls @ 20.412 mls/hr IV .[id number] PRN; Protocol; 18 UNITS/KG/HR PRN Reason: ADJUST RATE PER PROTOCOL Last Admin: 11/17/17 21:22 Dose: 15 units/kg/hr, 17.01 mls/hr Lidocaine HCl/Dextrose (Lidocaine 2 Grams In D5w) 2,000 mg in 500 mls @ 15 mls/ hr IV .Q24H OLINDA; 1 MG/MIN PRN Reason: Protocol Insulin Aspart (Novolog) 0 unit SC Q6 OLINDA PRN Reason: Protocol Last Admin: 11/18/17 08:41 Dose: 2 unit Losartan Potassium (Cozaar) 25 mg PO DAILY [facility] Morphine Sulfate (Morphine) 3 mg IV Q6 PRN PRN Reason: Pain, severe (8-10) Last Admin: 11/17/17 21:19 Dose: 3 mg Rosuvastatin Calcium (Crestor) 40 mg PO HS [facility] Last Admin: 11/17/17 21:21 Dose: 40 mg Ticagrelor (Brilinta) 90 mg PO BID [facility] Last Admin: 11/17/17 17:29 Dose: 90 mg Tramadol HCl (Ultram) 25 mg PO Q6H PRN PRN Reason: Pain, moderate (4-7) - Labs Labs: 11/18/17 05:24 11/18/17 05:24 PT 12.7 SECONDS (9.7-12.2) H 11/17/17 01:48 INR 1.1 11/17/17 01:48 APTT 64 SECONDS (21-34) H 11/18/17 05:24 Assessment and Plan (1) Chest pain Status: Acute (2) HTN (hypertension) Status: Acute (3) Diabetes Status: Acute (4) Acute inferior myocardial infarction Status: Acute
[2017-11-18] MEDS ORDERED: DOBUTamine 500mg/250ml D5W 500 MG/250 ML BAG IV SCH (10:00)
[2017-11-18 12:41] VITALS: PULSE 106; O2SAT 100
--- NOTE | 2017-11-18 12:52 | CP.CCUPN ---
CCU Subjective - Physician Review Events Since Last Encounter (Free Text): 11/18/17 13:03 patient feels good, better on BIPAP. CCU Objective - Vital Signs / Intake & Output Vital Signs (Last 4 hours): Vital Signs Pulse Resp BP Pulse Ox 11/18/17 11:01 105 H 17 122/63 97 11/18/17 11:00 105 H 16 100 11/18/17 10:30 106 H 19 106/67 100 11/18/17 10:01 101 H 18 115/73 100 11/18/17 10:00 103 H 21 99 11/18/17 09:01 105 H 16 113/64 99 11/18/17 09:00 105 H 19 99 Intake and Output (Last 8hrs): Intake & Output 11/17/17 11/18/17 11/18/17 22:59 06:59 14:59 Intake Total 1502.7 517.0 601.1 Output Total 1000 400 950 Balance 502.7 117.0 -348.9 Weight 251 lb 11.2 oz Intake: IV 260.9 Intake, IV Amount 401.8 397.0 361.1 Left Hand 153 153 102 Right Antecubital 100 Right Distal Port Forearm 240 240 150 Right Forearm 8.8 4.0 9.1 Oral 840 120 240 Output: Urine 1000 400 950 Urethral (Guerrero) 1000 400 950 - Medications Active Medications: Active Medications Generic Name Dose Route Start Last Admin Trade Name Freq PRN Reason Stop Dose Admin Acetaminophen 650 mg 11/17/17 03:28 11/17/17 14:53 Tylenol 325mg Tab PO 650 mg Q6 PRN Administration Pain, Mild (1-3) Albumin Human 12.5 gm 11/18/17 08:00 11/18/17 11:58 Albumin Human 25% (12.5 Gm/50 Ml) IV 11/18/17 18:01 12.5 gm Q2H OLINDA Administration Albuterol/Ipratropium 3 ml 11/17/17 13:30 11/18/17 07:42 Duoneb 3 Mg/0.5 Mg (3 Ml) Ud INH 3 ml RQ4 OLINDA Administration Aspirin 81 mg 11/17/17 10:00 11/18/17 09:37 Ecotrin PO 81 mg DAILY OLINDA Administration Furosemide 40 mg 11/18/17 09:00 11/18/17 08:31 Lasix IVP 40 mg Q12H OLINDA Administration Heparin Sodium/Sodium Chloride 25,000 units in 250 mls @ 20.412 mls/hr 03:01 11/17/17 21:22 Heparin 64520 Units/250ml 1/2 Normal Saline IV 15 units/kg/hr .[id number] PRN 17.01 mls/hr ADJUST RATE PER PROTOCOL Administration Protocol 18 UNITS/KG/HR Lidocaine HCl/Dextrose 2,000 mg in 500 mls @ 15 mls/hr 11/18/17 07:11 Lidocaine 2 Grams In D5w IV .Q24H OLINDA Protocol 1 MG/MIN Dobutamine HCl/Dextrose 500 mg in 250 mls @ 8.563 mls/hr 11/18/17 10:00 11/18 10:30 Dobutamine/Dextrose 5% 500mg/250ml IV 2.5 mcg/kg/min .Q24H OLINDA 8.563 mls/hr Protocol Administration 2.5 MCG/KG/MIN Insulin Aspart 0 unit 11/17/17 06:00 11/18/17 11:58 Novolog SC 3 unit Q6 OLINDA Administration Protocol Morphine Sulfate 3 mg 11/17/17 06:46 11/17/17 21:19 Morphine IV 3 mg Q6 PRN Administration Pain, severe (8-10) Rosuvastatin Calcium 40 mg 11/17/17 22:00 11/17/17 21:21 Crestor PO 40 mg HS OLINDA Administration Ticagrelor 90 mg 11/17/17 10:00 11/18/17 09:37 Brilinta PO 90 mg BID OLINDA Administration Tramadol HCl 25 mg 11/17/17 18:39 Ultram PO Q6H PRN Pain, moderate (4-7) - Patient Studies Lab Studies: Lab Studies 11/18/17 11/18/17 11/18/17 Range/Units 11:11 07:30 05:24 WBC (4.8-10.8) K/uL RBC (4.40-5.90) Mil/uL Hgb (12.0-18.0) g/dL Hct (35.0-51.0) % MCV (80.0-94.0) fL MCH (27.0-31.0) pg MCHC (33.0-37.0) g/dL RDW (11.5-14.5) % Plt Count (130-400) K/uL MPV (7.2-11.7) fL Neut % (Auto) (50.0-75.0) % Lymph % (Auto) (20.0-40.0) % Garvin % (Auto) (0.0-10.0) % Eos % (Auto) (0.0-4.0) % Baso % (Auto) (0.0-2.0) % Neut # (Auto) (1.8-7.0) K/uL Lymph # (Auto) (1.0-4.3) K/uL Garvin # (Auto) (0.0-0.8) K/uL Eos # (Auto) (0.0-0.7) K/uL Baso # (Auto) (0.0-0.2) K/uL APTT 64 H (21-34) SECONDS Sodium (132-148) mmol/L Potassium (3.6-5.2) mmol/L Chloride (98-107) mmol/L Carbon Dioxide (22-30) mmol/L Anion Gap (10-20) BUN (9-20) mg/dL Creatinine (0.8-1.5) mg/dL Est GFR ( Amer) Est GFR (Non-Af Amer) POC Glucose (mg/dL) 260 H 209 H (65-110) mg/dL Random Glucose (75-110) mg/dL Lactic Acid (0.7-2.1) mmol/L Calcium (8.6-10.4) mg/dl Phosphorus (2.5-4.5) mg/dL Magnesium (1.6-2.3) mg/dL Total Bilirubin (0.2-1.3) mg/dL AST (17-59) U/L ALT (21-72) U/L Alkaline Phosphatase (38-126) U/L Troponin I (0.00-0.120) ng/mL Total Protein (6.3-8.3) g/dL Albumin (3.5-5.0) g/dL Globulin (2.2-3.9) gm/dL Albumin/Globulin Ratio (1.0-2.1) Urine Color (YELLOW) Urine Clarity (Clear) Urine pH (5.0-8.0) Ur Specific [place] (1.003-1.030) Urine Protein (NEGATIVE) mg/dL Urine Glucose (UA) (Normal) mg/dL Urine Ketones (NEGATIVE) mg/dL Urine Blood (NEGATIVE) Urine Nitrate (NEGATIVE) Urine Bilirubin (NEGATIVE) Urine Urobilinogen (0.2-1.0) mg/dL Ur Leukocyte Esterase (Negative) Lilian/uL Urine WBC (Auto) (0-5) /hpf Urine RBC (Auto) (0-3) /hpf Ur Squamous Epith Cells (0-5) /hpf Urine Bacteria (<OCC) Urine Opiates Screen (NEGATIVE) Urine Methadone Screen (NEGATIVE) Ur Barbiturates Screen (NEGATIVE) Ur Phencyclidine Scrn (NEGATIVE) Ur Amphetamines Screen (NEGATIVE) U Benzodiazepines Scrn (NEGATIVE) U Oth Cocaine Metabols (NEGATIVE) U Cannabinoids Screen (NEGATIVE) 11/18/17 11/18/17 11/17/17 Range/Units 05:24 05:24 21:37 WBC 11.0 H (4.8-10.8) K/uL RBC 4.48 (4.40-5.90) Mil/uL Hgb 12.4 (12.0-18.0) g/dL Hct 37.7 (35.0-51.0) % MCV 84.0 (80.0-94.0) fL MCH 27.7 (27.0-31.0) pg MCHC 33.0 (33.0-37.0) g/dL RDW 16.4 H (11.5-14.5) % Plt Count 202 (130-400) K/uL MPV 8.4 (7.2-11.7) fL Neut % (Auto) 76.5 H (50.0-75.0) % Lymph % (Auto) 11.5 L (20.0-40.0) % Garvin % (Auto) 11.5 H (0.0-10.0) % Eos % (Auto) 0.3 (0.0-4.0) % Baso % (Auto) 0.2 (0.0-2.0) % Neut # (Auto) 8.4 H (1.8-7.0) K/uL Lymph # (Auto) 1.3 (1.0-4.3) K/uL Garvin # (Auto) 1.3 H (0.0-0.8) K/uL Eos # (Auto) 0.0 (0.0-0.7) K/uL Baso # (Auto) 0.0 (0.0-0.2) K/uL APTT 60 H D (21-34) SECONDS Sodium 138 (132-148) mmol/L Potassium 5.5 H (3.6-5.2) mmol/L Chloride 103 (98-107) mmol/L Carbon Dioxide 25 (22-30) mmol/L Anion Gap 16 (10-20) BUN 32 H (9-20) mg/dL Creatinine 1.8 H (0.8-1.5) mg/dL Est GFR ( Amer) 46 Est GFR (Non-Af Amer) 38 POC Glucose (mg/dL) (65-110) mg/dL Random Glucose 203 H (75-110) mg/dL Lactic Acid (0.7-2.1) mmol/L Calcium 8.8 (8.6-10.4) mg/dl Phosphorus 4.6 H (2.5-4.5) mg/dL Magnesium 1.7 (1.6-2.3) mg/dL Total Bilirubin 0.5 (0.2-1.3) mg/dL AST 456 H D (17-59) U/L ALT 129 H (21-72) U/L Alkaline Phosphatase 107 (38-126) U/L Troponin I (0.00-0.120) ng/mL Total Protein 7.3 (6.3-8.3) g/dL Albumin 3.6 (3.5-5.0) g/dL Globulin 3.7 (2.2-3.9) gm/dL Albumin/Globulin Ratio 1.0 (1.0-2.1) Urine Color (YELLOW) Urine Clarity (Clear) Urine pH (5.0-8.0) Ur Specific [place] (1.003-1.030) Urine Protein (NEGATIVE) mg/dL Urine Glucose (UA) (Normal) mg/dL Urine Ketones (NEGATIVE) mg/dL Urine Blood (NEGATIVE) Urine Nitrate (NEGATIVE) Urine Bilirubin (NEGATIVE) Urine Urobilinogen (0.2-1.0) mg/dL Ur Leukocyte Esterase (Negative) Lilian/uL Urine WBC (Auto) (0-5) /hpf Urine RBC (Auto) (0-3) /hpf Ur Squamous Epith Cells (0-5) /hpf Urine Bacteria (<OCC) Urine Opiates Screen (NEGATIVE) Urine Methadone Screen (NEGATIVE) Ur Barbiturates Screen (NEGATIVE) Ur Phencyclidine Scrn (NEGATIVE) Ur Amphetamines Screen (NEGATIVE) U Benzodiazepines Scrn (NEGATIVE) U Oth Cocaine Metabols (NEGATIVE) U Cannabinoids Screen (NEGATIVE) 11/17/17 11/17/17 11/17/17 Range/Units 21:30 21:05 17:23 WBC (4.8-10.8) K/uL RBC (4.40-5.90) Mil/uL Hgb (12.0-18.0) g/dL Hct (35.0-51.0) % MCV (80.0-94.0) fL MCH (27.0-31.0) pg MCHC (33.0-37.0) g/dL RDW (11.5-14.5) % Plt Count (130-400) K/uL MPV (7.2-11.7) fL Neut % (Auto) (50.0-75.0) % Lymph % (Auto) (20.0-40.0) % Garvin % (Auto) (0.0-10.0) % Eos % (Auto) (0.0-4.0) % Baso % (Auto) (0.0-2.0) % Neut # (Auto) (1.8-7.0) K/uL Lymph # (Auto) (1.0-4.3) K/uL Garvin # (Auto) (0.0-0.8) K/uL Eos # (Auto) (0.0-0.7) K/uL Baso # (Auto) (0.0-0.2) K/uL APTT (21-34) SECONDS Sodium (132-148) mmol/L Potassium (3.6-5.2) mmol/L Chloride (98-107) mmol/L Carbon Dioxide (22-30) mmol/L Anion Gap (10-20) BUN (9-20) mg/dL Creatinine (0.8-1.5) mg/dL Est GFR ( Amer) Est GFR (Non-Af Amer) POC Glucose (mg/dL) 235 H 263 H (65-110) mg/dL Random Glucose (75-110) mg/dL Lactic Acid (0.7-2.1) mmol/L Calcium (8.6-10.4) mg/dl Phosphorus (2.5-4.5) mg/dL Magnesium (1.6-2.3) mg/dL Total Bilirubin (0.2-1.3) mg/dL AST (17-59) U/L ALT (21-72) U/L Alkaline Phosphatase (38-126) U/L Troponin I 328.0000 H* (0.00-0.120) ng/mL Total Protein (6.3-8.3) g/dL Albumin (3.5-5.0) g/dL Globulin (2.2-3.9) gm/dL Albumin/Globulin Ratio (1.0-2.1) Urine Color (YELLOW) Urine Clarity (Clear) Urine pH (5.0-8.0) Ur Specific [place] (1.003-1.030) Urine Protein (NEGATIVE) mg/dL Urine Glucose (UA) (Normal) mg/dL Urine Ketones (NEGATIVE) mg/dL Urine Blood (NEGATIVE) Urine Nitrate (NEGATIVE) Urine Bilirubin (NEGATIVE) Urine Urobilinogen (0.2-1.0) mg/dL Ur Leukocyte Esterase (Negative) Lilian/uL Urine WBC (Auto) (0-5) /hpf Urine RBC (Auto) (0-3) /hpf Ur Squamous Epith Cells (0-5) /hpf Urine Bacteria (<OCC) Urine Opiates Screen (NEGATIVE) Urine Methadone Screen (NEGATIVE) Ur Barbiturates Screen (NEGATIVE) Ur Phencyclidine Scrn (NEGATIVE) Ur Amphetamines Screen (NEGATIVE) U Benzodiazepines Scrn (NEGATIVE) U Oth Cocaine Metabols (NEGATIVE) U Cannabinoids Screen (NEGATIVE) 11/17/17 11/17/17 11/17/17 Range/Units 14:10 12:54 12:54 WBC (4.8-10.8) K/uL RBC (4.40-5.90) Mil/uL Hgb (12.0-18.0) g/dL Hct (35.0-51.0) % MCV (80.0-94.0) fL MCH (27.0-31.0) pg MCHC (33.0-37.0) g/dL RDW (11.5-14.5) % Plt Count (130-400) K/uL MPV (7.2-11.7) fL Neut % (Auto) (50.0-75.0) % Lymph % (Auto) (20.0-40.0) % Garvin % (Auto) (0.0-10.0) % Eos % (Auto) (0.0-4.0) % Baso % (Auto) (0.0-2.0) % Neut # (Auto) (1.8-7.0) K/uL Lymph # (Auto) (1.0-4.3) K/uL Garvin # (Auto) (0.0-0.8) K/uL Eos # (Auto) (0.0-0.7) K/uL Baso # (Auto) (0.0-0.2) K/uL APTT 55 H D (21-34) SECONDS Sodium (132-148) mmol/L Potassium (3.6-5.2) mmol/L Chloride (98-107) mmol/L Carbon Dioxide (22-30) mmol/L Anion Gap (10-20) BUN (9-20) mg/dL Creatinine (0.8-1.5) mg/dL Est GFR ( Amer) Est GFR (Non-Af Amer) POC Glucose (mg/dL) (65-110) mg/dL Random Glucose (75-110) mg/dL Lactic Acid (0.7-2.1) mmol/L Calcium (8.6-10.4) mg/dl Phosphorus (2.5-4.5) mg/dL Magnesium (1.6-2.3) mg/dL Total Bilirubin (0.2-1.3) mg/dL AST (17-59) U/L ALT (21-72) U/L Alkaline Phosphatase (38-126) U/L Troponin I (0.00-0.120) ng/mL Total Protein (6.3-8.3) g/dL Albumin (3.5-5.0) g/dL Globulin (2.2-3.9) gm/dL Albumin/Globulin Ratio (1.0-2.1) Urine Color Yellow (YELLOW) Urine Clarity Hazy (Clear) Urine pH 5.0 (5.0-8.0) Ur Specific [place] 1.050 H (1.003-1.030) Urine Protein 1+ H (NEGATIVE) mg/dL Urine Glucose (UA) Normal (Normal) mg/dL Urine Ketones Negative (NEGATIVE) mg/dL Urine Blood 3+ H (NEGATIVE) Urine Nitrate Negative (NEGATIVE) Urine Bilirubin Negative (NEGATIVE) Urine Urobilinogen Normal (0.2-1.0) mg/dL Ur Leukocyte Esterase Neg (Negative) Lilian/uL Urine WBC (Auto) 1 (0-5) /hpf Urine RBC (Auto) 7 H (0-3) /hpf Ur Squamous Epith Cells < 1 (0-5) /hpf Urine Bacteria Rare (<OCC) Urine Opiates Screen Positive H (NEGATIVE) Urine Methadone Screen Negative (NEGATIVE) Ur Barbiturates Screen Negative (NEGATIVE) Ur Phencyclidine Scrn Negative (NEGATIVE) Ur Amphetamines Screen Negative (NEGATIVE) U Benzodiazepines Scrn Positive (NEGATIVE) U Oth Cocaine Metabols Negative (NEGATIVE) U Cannabinoids Screen Negative (NEGATIVE) 11/17/17 11/17/17 11/17/17 Range/Units 12:36 12:36 11:29 WBC (4.8-10.8) K/uL RBC (4.40-5.90) Mil/uL Hgb (12.0-18.0) g/dL Hct (35.0-51.0) % MCV (80.0-94.0) fL MCH (27.0-31.0) pg MCHC (33.0-37.0) g/dL RDW (11.5-14.5) % Plt Count (130-400) K/uL MPV (7.2-11.7) fL Neut % (Auto) (50.0-75.0) % Lymph % (Auto) (20.0-40.0) % Garvin % (Auto) (0.0-10.0) % Eos % (Auto) (0.0-4.0) % Baso % (Auto) (0.0-2.0) % Neut # (Auto) (1.8-7.0) K/uL Lymph # (Auto) (1.0-4.3) K/uL Garvin # (Auto) (0.0-0.8) K/uL Eos # (Auto) (0.0-0.7) K/uL Baso # (Auto) (0.0-0.2) K/uL APTT (21-34) SECONDS Sodium (132-148) mmol/L Potassium (3.6-5.2) mmol/L Chloride (98-107) mmol/L Carbon Dioxide (22-30) mmol/L Anion Gap (10-20) BUN (9-20) mg/dL Creatinine (0.8-1.5) mg/dL Est GFR ( Amer) Est GFR (Non-Af Amer) POC Glucose (mg/dL) 247 H (65-110) mg/dL Random Glucose (75-110) mg/dL Lactic Acid 1.7 (0.7-2.1) mmol/L Calcium (8.6-10.4) mg/dl Phosphorus (2.5-4.5) mg/dL Magnesium (1.6-2.3) mg/dL Total Bilirubin (0.2-1.3) mg/dL AST (17-59) U/L ALT (21-72) U/L Alkaline Phosphatase (38-126) U/L Troponin I 434.0000 H* (0.00-0.120) ng/mL Total Protein (6.3-8.3) g/dL Albumin (3.5-5.0) g/dL Globulin (2.2-3.9) gm/dL Albumin/Globulin Ratio (1.0-2.1) Urine Color (YELLOW) Urine Clarity (Clear) Urine pH (5.0-8.0) Ur Specific [place] (1.003-1.030) Urine Protein (NEGATIVE) mg/dL Urine Glucose (UA) (Normal) mg/dL Urine Ketones (NEGATIVE) mg/dL Urine Blood (NEGATIVE) Urine Nitrate (NEGATIVE) Urine Bilirubin (NEGATIVE) Urine Urobilinogen (0.2-1.0) mg/dL Ur Leukocyte Esterase (Negative) Lilian/uL Urine WBC (Auto) (0-5) /hpf Urine RBC (Auto) (0-3) /hpf Ur Squamous Epith Cells (0-5) /hpf Urine Bacteria (<OCC) Urine Opiates Screen (NEGATIVE) Urine Methadone Screen (NEGATIVE) Ur Barbiturates Screen (NEGATIVE) Ur Phencyclidine Scrn (NEGATIVE) Ur Amphetamines Screen (NEGATIVE) U Benzodiazepines Scrn (NEGATIVE) U Oth Cocaine Metabols (NEGATIVE) U Cannabinoids Screen (NEGATIVE) Laboratory Results - last 24 hr 11/17/17 11/17/17 11/17/17 11:29 12:36 12:36 WBC RBC Hgb Hct MCV MCH MCHC RDW Plt Count MPV Neut % (Auto) Lymph % (Auto) [place] % (Auto) Eos % (Auto) Baso % (Auto) Neut # (Auto) Lymph # (Auto) Garvin # (Auto) Eos # (Auto) Baso # (Auto) APTT Sodium Potassium Chloride Carbon Dioxide Anion Gap BUN Creatinine Est GFR ( Amer) Est GFR (Non-Af Amer) POC Glucose (mg/dL) 247 H Random Glucose Lactic Acid 1.7 Calcium Phosphorus Magnesium Total Bilirubin AST ALT Alkaline Phosphatase Troponin I 434.0000 H* Total Protein Albumin Globulin Albumin/Globulin Ratio Urine Color Urine Clarity Urine pH Ur Specific [place] Urine Protein Urine Glucose (UA) Urine Ketones Urine Blood Urine Nitrate Urine Bilirubin Urine Urobilinogen Ur Leukocyte Esterase Urine WBC (Auto) Urine RBC (Auto) Ur Squamous Epith Cells Urine Bacteria Urine Opiates Screen Urine Methadone Screen Ur Barbiturates Screen Ur Phencyclidine Scrn Ur Amphetamines Screen U Benzodiazepines Scrn U Oth Cocaine Metabols U Cannabinoids Screen 11/17/17 11/17/17 11/17/17 12:54 12:54 14:10 WBC RBC Hgb Hct MCV MCH MCHC RDW Plt Count MPV Neut % (Auto) Lymph % (Auto) [place] % (Auto) Eos % (Auto) Baso % (Auto) Neut # (Auto) Lymph # (Auto) Garvin # (Auto) Eos # (Auto) Baso # (Auto) APTT 55 H D Sodium Potassium Chloride Carbon Dioxide Anion Gap BUN Creatinine Est GFR ( Amer) Est GFR (Non-Af Amer) POC Glucose (mg/dL) Random Glucose Lactic Acid Calcium Phosphorus Magnesium Total Bilirubin AST ALT Alkaline Phosphatase Troponin I Total Protein Albumin Globulin Albumin/Globulin Ratio Urine Color Yellow Urine Clarity Hazy Urine pH 5.0 Ur Specific [place] 1.050 H Urine Protein 1+ H Urine Glucose (UA) Normal Urine Ketones Negative Urine Blood 3+ H Urine Nitrate Negative Urine Bilirubin Negative Urine Urobilinogen Normal Ur Leukocyte Esterase Neg Urine WBC (Auto) 1 Urine RBC (Auto) 7 H Ur Squamous Epith Cells < 1 Urine Bacteria Rare Urine Opiates Screen Positive H Urine Methadone Screen Negative Ur Barbiturates Screen Negative Ur Phencyclidine Scrn Negative Ur Amphetamines Screen Negative U Benzodiazepines Scrn Positive U Oth Cocaine Metabols Negative U Cannabinoids Screen Negative 11/17/17 11/17/17 11/17/17 17:23 21:05 21:30 WBC RBC Hgb Hct MCV MCH MCHC RDW Plt Count MPV Neut % (Auto) Lymph % (Auto) Garvin % (Auto) Eos % (Auto) Baso % (Auto) Neut # (Auto) Lymph # (Auto) Garvin # (Auto) Eos # (Auto) Baso # (Auto) APTT Sodium Potassium Chloride Carbon Dioxide Anion Gap BUN Creatinine Est GFR ( Amer) Est GFR (Non-Af Amer) POC Glucose (mg/dL) 263 H 235 H Random Glucose Lactic Acid Calcium Phosphorus Magnesium Total Bilirubin AST ALT Alkaline Phosphatase Troponin I 328.0000 H* Total Protein Albumin Globulin Albumin/Globulin Ratio Urine Color Urine Clarity Urine pH Ur Specific [place] Urine Protein Urine Glucose (UA) Urine Ketones Urine Blood Urine Nitrate Urine Bilirubin Urine Urobilinogen Ur Leukocyte Esterase Urine WBC (Auto) Urine RBC (Auto) Ur Squamous Epith Cells Urine Bacteria Urine Opiates Screen Urine Methadone Screen Ur Barbiturates Screen Ur Phencyclidine Scrn Ur Amphetamines Screen U Benzodiazepines Scrn U Oth Cocaine Metabols U Cannabinoids Screen 11/17/17 11/18/17 11/18/17 21:37 05:24 05:24 WBC 11.0 H RBC 4.48 Hgb 12.4 Hct 37.7 MCV 84.0 MCH 27.7 MCHC 33.0 RDW 16.4 H Plt Count 202 MPV 8.4 Neut % (Auto) 76.5 H Lymph % (Auto) 11.5 L [place]vin % (Auto) 11.5 H Eos % (Auto) 0.3 Baso % (Auto) 0.2 Neut # (Auto) 8.4 H Lymph # (Auto) 1.3 Garvin # (Auto) 1.3 H Eos # (Auto) 0.0 Baso # (Auto) 0.0 APTT 60 H D Sodium 138 Potassium 5.5 H Chloride 103 Carbon Dioxide 25 Anion Gap 16 BUN 32 H Creatinine 1.8 H Est GFR ( Amer) 46 Est GFR (Non-Af Amer) 38 POC Glucose (mg/dL) Random Glucose 203 H Lactic Acid Calcium 8.8 Phosphorus 4.6 H Magnesium 1.7 Total Bilirubin 0.5 AST 456 H D ALT 129 H Alkaline Phosphatase 107 Troponin I Total Protein 7.3 Albumin 3.6 Globulin 3.7 Albumin/Globulin Ratio 1.0 Urine Color Urine Clarity Urine pH Ur Specific [place] Urine Protein Urine Glucose (UA) Urine Ketones Urine Blood Urine Nitrate Urine Bilirubin Urine Urobilinogen Ur Leukocyte Esterase Urine WBC (Auto) Urine RBC (Auto) Ur Squamous Epith Cells Urine Bacteria Urine Opiates Screen Urine Methadone Screen Ur Barbiturates Screen Ur Phencyclidine Scrn Ur Amphetamines Screen U Benzodiazepines Scrn U Oth Cocaine Metabols U Cannabinoids Screen 11/18/17 11/18/17 11/18/17 05:24 07:30 11:11 WBC RBC Hgb Hct MCV MCH MCHC RDW Plt Count MPV Neut % (Auto) Lymph % (Auto) [place] % (Auto) Eos % (Auto) Baso % (Auto) Neut # (Auto) Lymph # (Auto) [place]vin # (Auto) Eos # (Auto) Baso # (Auto) APTT 64 H Sodium Potassium Chloride Carbon Dioxide Anion Gap BUN Creatinine Est GFR ( Amer) Est GFR (Non-Af Amer) POC Glucose (mg/dL) 209 H 260 H Random Glucose Lactic Acid Calcium Phosphorus Magnesium Total Bilirubin AST ALT Alkaline Phosphatase Troponin I Total Protein Albumin Globulin Albumin/Globulin Ratio Urine Color Urine Clarity Urine pH Ur Specific [place] Urine Protein Urine Glucose (UA) Urine Ketones Urine Blood Urine Nitrate Urine Bilirubin Urine Urobilinogen Ur Leukocyte Esterase Urine WBC (Auto) Urine RBC (Auto) Ur Squamous Epith Cells Urine Bacteria Urine Opiates Screen Urine Methadone Screen Ur Barbiturates Screen Ur Phencyclidine Scrn Ur Amphetamines Screen U Benzodiazepines Scrn U Oth Cocaine Metabols U Cannabinoids Screen EKG/Cardiology Studies: Cardiology / EKG Studies 11/17/17 15:30 EKG [ELECTROCARDIOGRAM] Q6H Comment: Mode Of Transportation: Reason For Exam: NC Fingerstick Blood Sugar Results: 209 Review of Systems - Review of Systems All systems: reviewed and no additional remarkable complaints except - Cardiovascular Cardiovascular: Chest Pain - Respiratory Respiratory: Dyspnea Critical Care Progress Note - Nutrition Nutrition: Nutrition Category Date Time Status Heart Healthy Diet [DIET] Diets 11/17/17 Breakfast Active Assessment/Plan (1) Cardiogenic shock Assessment and plan: 67yo M. PMHx DM type 2, DVT, smoking, presents to [facility] with c/o chest pain. Patient was dx with STEMI s/p cath. Post cath, patient denies any chest pain. As per Dr. Hsieh, patient had V-tach in pathology lab technician, JESSICA PCI in [place]. In ICU, patient was on IABP, with IV lidoacine and IV heparin. 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 Pulm: acute respiratory failure secondary to cardiogenic pulmonary edema. continue diuresis with concomitant albumin drip. continue BIPAP. CV: cardiogenic shock on IABP. Still hypotensive on pump, started Dobutamine to improve cardiac output. Hem: anemia of critical illness. Heparin gtt while on IABP. s/p STEMI continue ASA and Brilinta. Renal: slightly worsening non-oliguric acute renal failure. Hyperkalemia, should drop with lasix 40mg IV q12h administration. Endo: DM type 2, SISS for coverage. GI: heart healthy diet, but not able to eat while on BIPAP. ID: no acute issues DVT proph - heparin gtt GI proph - protonix IV guerrero for strict I/O's during acute illness Code status - full code Critical Care Time spent 45 minutes Multi-disciplinary rounds were performed with house staff, nursing, speech therapy, respiratory therapy, pharmacy and nutrition with integrated input from the primary team/attending and other consulting services. The documented time is cumulative and includes review of patient data/exams/labs/chart review and examination of the patient on rounds and throughout the day; time is exclusive of any procedures or teaching time. Current Visit: Yes Status: Acute
--- NOTE | 2017-11-18 13:08 | CP.PCM.CON ---
History of Present Illness - History of Present Illness History of Present Illness: pt is seen and examined, full consult is dictated #[id number] 1. Acute MT 2. VERONIQUE , on oliguric can'tr/o ATN sec to rhabdo and/or contrast, 3. Cardiomyopathy 4. CHF 5. DM 6. Retroperitoneal fibrosis, b/l ureteic stents 7. Shock liver s/p cat and stent in LAD s/p IABP continue gentle diuresis avoid nephrotoxic agents Past Patient History - Past Medical History & Family History Past Medical History?: Yes - Past Social History Smoking Status: Former Smoker - ENDOCRINE/METABOLIC Hx Endocrine Disorders: Yes Hx Diabetes Mellitus Type 2: Yes - MUSCULOSKELETAL/RHEUMATOLOGICAL Hx Falls: No - GASTROINTESTINAL Other/Comment: [place] Disease - PSYCHIATRIC Hx Substance Use: No - SURGICAL HISTORY Hx Surgeries: No - ANESTHESIA Hx Anesthesia: Yes Hx Anesthesia Reactions: No Hx Malignant Hyperthermia: No Has any member of the family had a problem w/ anesthesia?: No Meds Allergies/Adverse Reactions: Allergies Allergy/AdvReac Type Severity Reaction Status Date / Time Penicillins Allergy Verified 11/17/17 01:44 - Medications Medications: Current Medications Acetaminophen (Tylenol 325mg Tab) 650 mg PO Q6 PRN PRN Reason: Pain, Mild (1-3) Last Admin: 11/17/17 14:53 Dose: 650 mg Albumin Human (Albumin Human 25% (12.5 Gm/50 Ml)) 12.5 gm IV Q2H [facility] Stop: 11/18/17 18:01 Last Admin: 11/18/17 11:58 Dose: 12.5 gm Albuterol/Ipratropium (Duoneb 3 Mg/0.5 Mg (3 Ml) Ud) 3 ml INH RQ4 [facility] Last Admin: 11/18/17 07:42 Dose: 3 ml Aspirin (Ecotrin) 81 mg PO DAILY [facility] Last Admin: 11/18/17 09:37 Dose: 81 mg Furosemide (Lasix) 40 mg IVP Q12H [facility] Last Admin: 11/18/17 08:31 Dose: 40 mg Heparin Sodium/Sodium Chloride (Heparin 41940 Units/250ml 1/2 Normal Saline) 25 ,000 units in 250 mls @ 20.412 mls/hr IV .[id number] PRN; Protocol; 18 UNITS/KG/HR PRN Reason: ADJUST RATE PER PROTOCOL Last Admin: 11/17/17 21:22 Dose: 15 units/kg/hr, 17.01 mls/hr Lidocaine HCl/Dextrose (Lidocaine 2 Grams In D5w) 2,000 mg in 500 mls @ 15 mls/ hr IV .Q24H [facility]; 1 MG/MIN PRN Reason: Protocol Dobutamine HCl/Dextrose (Dobutamine/Dextrose 5% 500mg/250ml) 500 mg in 250 mls @ 8.563 mls/hr IV .Q24H OLINDA; 2.5 MCG/KG/MIN PRN Reason: Protocol Last Admin: 11/18/17 10:30 Dose: 2.5 mcg/kg/min, 8.563 mls/hr Insulin Aspart (Novolog) 0 unit SC Q6 [facility]DA PRN Reason: Protocol Last Admin: 11/18/17 11:58 Dose: 3 unit Morphine Sulfate (Morphine) 3 mg IV Q6 PRN PRN Reason: Pain, severe (8-10) Last Admin: 11/17/17 21:19 Dose: 3 mg Rosuvastatin Calcium (Crestor) 40 mg PO HS [facility] Last Admin: 11/17/17 21:21 Dose: 40 mg Ticagrelor (Brilinta) 90 mg PO BID [facility] Last Admin: 11/18/17 09:37 Dose: 90 mg Tramadol HCl (Ultram) 25 mg PO Q6H PRN PRN Reason: Pain, moderate (4-7) Results - Vital Signs Recent Vital Signs: Last Vital Signs Temp 98.5 F 11/18/17 08:00 Pulse 106 H 11/18/17 12:01 Resp 15 11/18/17 12:01 BP 122/66 11/18/17 12:01 Pulse Ox 100 11/18/17 12:01 - Labs Result Diagrams: 11/18/17 05:24 11/18/17 05:24 Labs: Laboratory Results - last 24 hr 11/17/17 11/17/17 11/17/17 11:29 12:36 12:54 WBC RBC Hgb Hct MCV MCH MCHC RDW Plt Count MPV Neut % (Auto) Lymph % (Auto) [place] % (Auto) Eos % (Auto) Baso % (Auto) Neut # (Auto) Lymph # (Auto) [place] # (Auto) Eos # (Auto) Baso # (Auto) APTT Sodium Potassium Chloride Carbon Dioxide Anion Gap BUN Creatinine Est GFR ( Amer) Est GFR (Non-Af Amer) POC Glucose (mg/dL) 247 H Random Glucose Calcium Phosphorus Magnesium Total Bilirubin AST ALT Alkaline Phosphatase Troponin I 434.0000 H* Total Protein Albumin Globulin Albumin/Globulin Ratio Urine Color Yellow Urine Clarity Hazy Urine pH 5.0 Ur Specific [place] 1.050 H Urine Protein 1+ H Urine Glucose (UA) Normal Urine Ketones Negative Urine Blood 3+ H Urine Nitrate Negative Urine Bilirubin Negative Urine Urobilinogen Normal Ur Leukocyte Esterase Neg Urine WBC (Auto) 1 Urine RBC (Auto) 7 H Ur Squamous Epith Cells < 1 Urine Bacteria Rare Urine Opiates Screen Urine Methadone Screen Ur Barbiturates Screen Ur Phencyclidine Scrn Ur Amphetamines Screen U Benzodiazepines Scrn U Oth Cocaine Metabols U Cannabinoids Screen 11/17/17 11/17/17 11/17/17 12:54 14:10 17:23 WBC RBC Hgb Hct MCV MCH MCHC RDW Plt Count MPV Neut % (Auto) Lymph % (Auto) [place] % (Auto) Eos % (Auto) Baso % (Auto) Neut # (Auto) Lymph # (Auto) [place] # (Auto) Eos # (Auto) Baso # (Auto) APTT 55 H D Sodium Potassium Chloride Carbon Dioxide Anion Gap BUN Creatinine Est GFR ( Amer) Est GFR (Non-Af Amer) POC Glucose (mg/dL) 263 H Random Glucose Calcium Phosphorus Magnesium Total Bilirubin AST ALT Alkaline Phosphatase Troponin I Total Protein Albumin Globulin Albumin/Globulin Ratio Urine Color Urine Clarity Urine pH Ur Specific [place] Urine Protein Urine Glucose (UA) Urine Ketones Urine Blood Urine Nitrate Urine Bilirubin Urine Urobilinogen Ur Leukocyte Esterase Urine WBC (Auto) Urine RBC (Auto) Ur Squamous Epith Cells Urine Bacteria Urine Opiates Screen Positive H Urine Methadone Screen Negative Ur Barbiturates Screen Negative Ur Phencyclidine Scrn Negative Ur Amphetamines Screen Negative U Benzodiazepines Scrn Positive U Oth Cocaine Metabols Negative U Cannabinoids Screen Negative 11/17/17 11/17/17 11/17/17 21:05 21:30 21:37 WBC RBC Hgb Hct MCV MCH MCHC RDW Plt Count MPV Neut % (Auto) Lymph % (Auto) [place] % (Auto) Eos % (Auto) Baso % (Auto) Neut # (Auto) Lymph # (Auto) [place] # (Auto) Eos # (Auto) Baso # (Auto) APTT 60 H D Sodium Potassium Chloride Carbon Dioxide Anion Gap BUN Creatinine Est GFR ( Amer) Est GFR (Non-Af Amer) POC Glucose (mg/dL) 235 H Random Glucose Calcium Phosphorus Magnesium Total Bilirubin AST ALT Alkaline Phosphatase Troponin I 328.0000 H* Total Protein Albumin Globulin Albumin/Globulin Ratio Urine Color Urine Clarity Urine pH Ur Specific [place] Urine Protein Urine Glucose (UA) Urine Ketones Urine Blood Urine Nitrate Urine Bilirubin Urine Urobilinogen Ur Leukocyte Esterase Urine WBC (Auto) Urine RBC (Auto) Ur Squamous Epith Cells Urine Bacteria Urine Opiates Screen Urine Methadone Screen Ur Barbiturates Screen Ur Phencyclidine Scrn Ur Amphetamines Screen U Benzodiazepines Scrn U Oth Cocaine Metabols U Cannabinoids Screen 11/18/17 11/18/17 11/18/17 05:24 05:24 05:24 WBC 11.0 H RBC 4.48 Hgb 12.4 Hct 37.7 MCV 84.0 MCH 27.7 MCHC 33.0 RDW 16.4 H Plt Count 202 MPV 8.4 Neut % (Auto) 76.5 H Lymph % (Auto) 11.5 L [place] % (Auto) 11.5 H Eos % (Auto) 0.3 Baso % (Auto) 0.2 Neut # (Auto) 8.4 H Lymph # (Auto) 1.3 [place] # (Auto) 1.3 H Eos # (Auto) 0.0 Baso # (Auto) 0.0 APTT 64 H Sodium 138 Potassium 5.5 H Chloride 103 Carbon Dioxide 25 Anion Gap 16 BUN 32 H Creatinine 1.8 H Est GFR ( Amer) 46 Est GFR (Non-Af Amer) 38 POC Glucose (mg/dL) Random Glucose 203 H Calcium 8.8 Phosphorus 4.6 H Magnesium 1.7 Total Bilirubin 0.5 AST 456 H D ALT 129 H Alkaline Phosphatase 107 Troponin I Total Protein 7.3 Albumin 3.6 Globulin 3.7 Albumin/Globulin Ratio 1.0 Urine Color Urine Clarity Urine pH Ur Specific [place] Urine Protein Urine Glucose (UA) Urine Ketones Urine Blood Urine Nitrate Urine Bilirubin Urine Urobilinogen Ur Leukocyte Esterase Urine WBC (Auto) Urine RBC (Auto) Ur Squamous Epith Cells Urine Bacteria Urine Opiates Screen Urine Methadone Screen Ur Barbiturates Screen Ur Phencyclidine Scrn Ur Amphetamines Screen U Benzodiazepines Scrn U Oth Cocaine Metabols U Cannabinoids Screen 11/18/17 11/18/17 07:30 11:11 WBC RBC Hgb Hct MCV MCH MCHC RDW Plt Count MPV Neut % (Auto) Lymph % (Auto) [place] % (Auto) Eos % (Auto) Baso % (Auto) Neut # (Auto) Lymph # (Auto) [place] # (Auto) Eos # (Auto) Baso # (Auto) APTT Sodium Potassium Chloride Carbon Dioxide Anion Gap BUN Creatinine Est GFR ( Amer) Est GFR (Non-Af Amer) POC Glucose (mg/dL) 209 H 260 H Random Glucose Calcium Phosphorus Magnesium Total Bilirubin AST ALT Alkaline Phosphatase Troponin I Total Protein Albumin Globulin Albumin/Globulin Ratio Urine Color Urine Clarity Urine pH Ur Specific [place] Urine Protein Urine Glucose (UA) Urine Ketones Urine Blood Urine Nitrate Urine Bilirubin Urine Urobilinogen Ur Leukocyte Esterase Urine WBC (Auto) Urine RBC (Auto) Ur Squamous Epith Cells Urine Bacteria Urine Opiates Screen Urine Methadone Screen Ur Barbiturates Screen Ur Phencyclidine Scrn Ur Amphetamines Screen U Benzodiazepines Scrn U Oth Cocaine Metabols U Cannabinoids Screen
--- NOTE | 2017-11-18 13:19 | RAD ---
HISTORY: chf COMPARISON: 11/17/2017 FINDINGS: LUNGS: .Patchy diffuse infiltrate changes throughout the right lung possibly representing asymmetric pulmonary edema/ CHF traverses the pneumonia. Mild atelectasis and or infiltrate changes left lung base. PLEURA: No significant pleural effusion identified, no pneumothorax apparent. CARDIOVASCULAR: Normal. OSSEOUS STRUCTURES: No significant abnormalities. VISUALIZED UPPER ABDOMEN: Normal. OTHER FINDINGS: None. IMPRESSION: .Patchy diffuse infiltrate changes throughout the right lung possibly representing asymmetric pulmonary edema/ CHF traverses the pneumonia. Mild atelectasis and or infiltrate changes left lung base.
[2017-11-18 14:23] VITALS: BP 136/74; RESP 17
[2017-11-18 14:27] VITALS: TEMP 98.6
--- NOTE | 2017-11-18 15:38 | CARD ---
APPROVED REPORT EXAM: Two-dimensional and M-mode echocardiogram with Doppler and color Doppler. Other Information Quality : LimitedRhythm : NSR INDICATION Pericardial Effusion RISK FACTORS Hypertension Hyperlipidemia Diabetes M-Mode DIMENSIONS RVDd3.58 (2.1-3.2cm) Mitral Valve E/A ratio0.0 TDI E/Lateral E'0.0E/Medial E'0.0 <Conclusion> tds. limited study. la,lv & ra size appears normal. rv is moderately dilated. moderately severe lv systolic dysfunciton more pronounced in apex & inferoapical wall. small anterior pericardial effusion is noted. no mr,tr seen. repeat complete study when fesible.
--- NOTE | 2017-11-18 23:48 | CP.PCM.PN ---
Subjective - Date & Time of Evaluation Date of Evaluation: 11/18/17 Time of Evaluation: 11:30 - Subjective Subjective: Patient denies chest pain Some dyspnea on BiPAP On IABP Pmx: DM, h/o DVT, h/o kidney stones Allergic: PCN and "spinach" Social history: (+)smoking Review of Systems - Review of Systems Review of Systems: as per HPI Physical Exam - Head Exam Head Exam: ATRAUMATIC, NORMAL INSPECTION, NORMOCEPHALIC - Eye Exam Eye Exam: EOMI - ENT Exam ENT Exam: Mucous Membranes Moist - Respiratory Exam Respiratory Exam: Clear to Auscultation Bilateral, NORMAL BREATHING PATTERN - Cardiovascular Exam Cardiovascular Exam: Tachycardia, +S1, +S2 - GI/Abdominal Exam GI & Abdominal Exam: Normal Bowel Sounds, Soft - Extremities Exam Extremities exam: Positive for: normal inspection Additional comments: right femoral IABP no bleeding at site Objective - Vital Signs/Intake and Output Vital Signs (last 24 hours): Temp Pulse Resp BP Pulse Ox 98.6 F 106 H 17 136/74 100 11/18/17 12:00 11/18/17 13:05 11/18/17 13:01 11/18/17 13:01 11/18/17 13:01 Intake and Output: 11/18/17 11/19/17 18:59 06:59 Intake Total 817.9 Output Total 1575 Balance -757.1 - Labs Labs: 11/18/17 05:24 11/18/17 05:24 PT 12.7 SECONDS (9.7-12.2) H 11/17/17 01:48 INR 1.1 11/17/17 01:48 APTT 64 SECONDS (21-34) H 11/18/17 05:24 Assessment and Plan - Assessment and Plan (Free Text) Assessment: S/P Acute Anterior wall STEMI Acute systolic CHF. EF improving repeat ECHO EF 30-35% Pulmonary edema s/p V Tach VERONIQUE S/P Cath and LAD JESSICA on IABP Plan: IABP Bed rest IV Heparin with protocol, ASA, Brilinta, Statin, b abad, ARB, ISS, pepcid, Lidocaine drip ROMIs Daily EKGs Monitor lytes, CBC, check lipids Transfer to [facility] for further management
--- NOTE | 2017-11-19 03:02 | CP.PCM.DIS ---
Provider - Provider Date of Admission: 11/17/17 02:13 Attending physician: Roni Wise MD Time Spent in preparation of Discharge (in minutes): 45 Diagnosis - Discharge Diagnosis (1) Chest pain Status: Acute (2) HTN (hypertension) Status: Acute (3) Diabetes Status: Acute (4) Acute inferior myocardial infarction Status: Acute Hospital Course - Lab Results Lab Results: Micro Results 11/17/17 06:30 Naris MRSA Culture (Admit) - Final MRSA NOT DETECTED Most Recent Lab Values WBC 11.0 K/uL (4.8-10.8) H 11/18/17 05:24 RBC 4.48 Mil/uL (4.40-5.90) 11/18/17 05:24 Hgb 12.4 g/dL (12.0-18.0) 11/18/17 05:24 Hct 37.7 % (35.0-51.0) 11/18/17 05:24 MCV 84.0 fL (80.0-94.0) 11/18/17 05:24 MCH 27.7 pg (27.0-31.0) 11/18/17 05:24 MCHC 33.0 g/dL (33.0-37.0) 11/18/17 05:24 RDW 16.4 % (11.5-14.5) H 11/18/17 05:24 Plt Count 202 K/uL (130-400) 11/18/17 05:24 MPV 8.4 fL (7.2-11.7) 11/18/17 05:24 Neut % (Auto) 76.5 % (50.0-75.0) H 11/18/17 05:24 Lymph % (Auto) 11.5 % (20.0-40.0) L 11/18/17 05:24 [place] % (Auto) 11.5 % (0.0-10.0) H 11/18/17 05:24 Eos % (Auto) 0.3 % (0.0-4.0) 11/18/17 05:24 Baso % (Auto) 0.2 % (0.0-2.0) 11/18/17 05:24 Neut # (Auto) 8.4 K/uL (1.8-7.0) H 11/18/17 05:24 Lymph # (Auto) 1.3 K/uL (1.0-4.3) 11/18/17 05:24 [place] # (Auto) 1.3 K/uL (0.0-0.8) H 11/18/17 05:24 Eos # (Auto) 0.0 K/uL (0.0-0.7) 11/18/17 05:24 Baso # (Auto) 0.0 K/uL (0.0-0.2) 11/18/17 05:24 PT 12.7 SECONDS (9.7-12.2) H 11/17/17 01:48 INR 1.1 11/17/17 01:48 APTT 64 SECONDS (21-34) H 11/18/17 05:24 Sodium 138 mmol/L (132-148) 11/18/17 05:24 Potassium 5.5 mmol/L (3.6-5.2) H 11/18/17 05:24 Chloride 103 mmol/L (98-107) 11/18/17 05:24 Carbon Dioxide 25 mmol/L (22-30) 11/18/17 05:24 Anion Gap 16 (10-20) 11/18/17 05:24 BUN 32 mg/dL (9-20) H 11/18/17 05:24 Creatinine 1.8 mg/dL (0.8-1.5) H 11/18/17 05:24 Est GFR ( Amer) 46 11/18/17 05:24 Est GFR (Non-Af Amer) 38 11/18/17 05:24 POC Glucose (mg/dL) 260 mg/dL (65-110) H 11/18/17 11:11 Random Glucose 203 mg/dL (75-110) H 11/18/17 05:24 Hemoglobin A1c 8.5 % (4.2-6.5) H 11/17/17 05:21 Lactic Acid 1.7 mmol/L (0.7-2.1) 11/17/17 12:36 Calcium 8.8 mg/dl (8.6-10.4) 11/18/17 05:24 Phosphorus 4.6 mg/dL (2.5-4.5) H 11/18/17 05:24 Magnesium 1.7 mg/dL (1.6-2.3) 11/18/17 05:24 Total Bilirubin 0.5 mg/dL (0.2-1.3) 11/18/17 05:24 AST 456 U/L (17-59) H D 11/18/17 05:24 ALT 129 U/L (21-72) H 11/18/17 05:24 Alkaline Phosphatase 107 U/L (38-126) 11/18/17 05:24 Total Creatine Kinase 8636 U/L (55-170) H 11/17/17 09:32 CK-MB (Mass) 335 ng/mL (0.0-3.38) H 11/17/17 09:32 Troponin I 328.0000 ng/mL (0.00-0.120) H* 11/17/17 21:30 NT-Pro-B Natriuret Pep 295 pg/mL (0-900) 11/17/17 01:55 Total Protein 7.3 g/dL (6.3-8.3) 11/18/17 05:24 Albumin 3.6 g/dL (3.5-5.0) 11/18/17 05:24 Globulin 3.7 gm/dL (2.2-3.9) 11/18/17 05:24 Albumin/Globulin Ratio 1.0 (1.0-2.1) 11/18/17 05:24 Triglycerides 146 mg/dL (0-149) 11/17/17 02:56 Cholesterol 168 mg/dL (0-199) 11/17/17 02:56 LDL Cholesterol Direct 114 mg/dL (0-129) 11/17/17 02:56 HDL Cholesterol 34 mg/dL (30-70) 11/17/17 02:56 Free T4 1.06 ng/dL (0.78-2.19) 11/17/17 05:21 TSH 3rd Generation 3.52 mIU/L (0.46-4.68) 11/17/17 02:56 Urine Color Yellow (YELLOW) 11/17/17 12:54 Urine Clarity Hazy (Clear) 11/17/17 12:54 Urine pH 5.0 (5.0-8.0) 11/17/17 12:54 Ur Specific [place] 1.050 (1.003-1.030) H 11/17/17 12:54 Urine Protein 1+ mg/dL (NEGATIVE) H 11/17/17 12:54 Urine Glucose (UA) Normal mg/dL (Normal) 11/17/17 12:54 Urine Ketones Negative mg/dL (NEGATIVE) 11/17/17 12:54 Urine Blood 3+ (NEGATIVE) H 11/17/17 12:54 Urine Nitrate Negative (NEGATIVE) 11/17/17 12:54 Urine Bilirubin Negative (NEGATIVE) 11/17/17 12:54 Urine Urobilinogen Normal mg/dL (0.2-1.0) 11/17/17 12:54 Ur Leukocyte Esterase Neg Lilian/uL (Negative) 11/17/17 12:54 Urine WBC (Auto) 1 /hpf (0-5) 11/17/17 12:54 Urine RBC (Auto) 7 /hpf (0-3) H 11/17/17 12:54 Ur Squamous Epith Cells < 1 /hpf (0-5) 11/17/17 12:54 Urine Bacteria Rare (<OCC) 11/17/17 12:54 Urine Opiates Screen Positive (NEGATIVE) H 11/17/17 12:54 Urine Methadone Screen Negative (NEGATIVE) 11/17/17 12:54 Ur Barbiturates Screen Negative (NEGATIVE) 11/17/17 12:54 Ur Phencyclidine Scrn Negative (NEGATIVE) 11/17/17 12:54 Ur Amphetamines Screen Negative (NEGATIVE) 11/17/17 12:54 U Benzodiazepines Scrn Positive (NEGATIVE) 11/17/17 12:54 U Oth Cocaine Metabols Negative (NEGATIVE) 11/17/17 12:54 U Cannabinoids Screen Negative (NEGATIVE) 11/17/17 12:54 Blood Type O POSITIVE 11/17/17 01:55 Antibody Screen Negative 11/17/17 01:55 - Hospital Course Hospital Course: s/p cat and stent in LAD s/p IABP continue gentle diuresis avoid nephrotoxic agents Discharge Exam - Head Exam Head Exam: ATRAUMATIC, NORMAL INSPECTION, NORMOCEPHALIC Discharge Plan - Follow Up Plan Condition: GUARDED Disposition: Trans to Other Acute Care Hosp Instructions: Heart Healthy Diet, Heart Attack (DC), Heart Attack Recovery, Medicines After a Heart Attack, Clot Dissolving Drugs for Heart Attack or Stroke
--- NOTE | 2017-11-20 06:29 | CON ---
DATE: 11/18/2017 LOCATION: ICU bed 3. REQUESTING PHYSICIAN: Roni Wise MD REASON FOR FOLLOWUP: Acute renal failure, acute NV and for further evaluation. HISTORY OF PRESENT ILLNESS: Mr. De La Garza is a 67 years old obese elderly male with a past medical history significant for diabetes for about 10 years, hyperlipidemia, CHF, retroperitoneal fibrosis, bilateral ureteral stents long time ago with baseline creatinine about 1.2 was admitted with chief complaint of chest discomfort or indigestion feeling since 9 p.m. last night when EMS arrived at 3:24, the patient was given aspirin and nitroglycerin sublingual for possible and transferred to the emergency room. Code heart was activated at 1:36 a.m. this morning. The patient continued to have severe left-sided chest pain and also associated vomiting x1, status post intraaortic balloon placement. The patient is also being treated for acute NV and CHF, status post echocardiogram consistent with ejection fraction about 20% to 25%, status post cardiac cath and status post left anterior descending artery angioplasty and drug eluting stent placement and intraaortic balloon placement last night for acute anterior wall ST elevation myocardial infarction. PAST MEDICAL HISTORY: Significant for longstanding hypertension, diabetes, hyperlipidemia, ex-smoker, retroperitoneal fibrosis, bilateral ureteral stents. PAST SURGICAL HISTORY: Bilateral ureteral stents as per the patient long time ago. ALLERGIES: ALLERGIC TO PENICILLIN. SOCIAL HISTORY: The patient was ex-smoker. No alcohol abuse. No drug abuse. PERSONAL HISTORY: He is a . He has 2 children. FAMILY HISTORY: Not significant. CURRENT MEDICATIONS: Current medications include albumin 12.5 gm IV q.12, Brilinta 90 mg p.o. b.i.d., Crestor 40 mg p.o. at bedtime, DuoNeb inhaler, aspirin 81 mg daily, heparin 25,000 units in 250 mL half normal saline at 20 mL/hour, Lasix 40 mg IV every 12 hours, morphine sulphate 3 mg IV every 6 hours p.r.n., NovoLog for sliding scale and tramadol 25 mg p.o. every 6 hours. REVIEW OF SYSTEMS: Significant for shortness of breath and chest pain and positive for acute NV. All other review of systems were reviewed and as per HPI. PHYSICAL EXAMINATION: VITAL SIGNS: Blood pressure 122/66, pulse 107, respirations 22, temperature 98.5, saturation 100%. Height 6 feet and 2 inches and weight is 251 pounds. GENERAL: Mr. De La Garza is a 67 years old elderly male with a history of hypertension, diabetes, hyperlipidemia, moderately built, moderately nourished, not in distress. HEENT: Pupils normal, reactive to light and accommodation. Conjunctivae pink. Sclerae anicteric. Tongue is moist. Trachea is midline. LUNGS: Symmetric on both sides. Bilateral breath sounds present. Basal crackles present. CVS: [place] at the fifth intercostal space, midclavicular line. S1, S2 audible. No murmur, no gallop. ABDOMEN: Normal in appearance, soft, tympanic. No guarding, no rigidity. No hepatosplenomegaly. 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 Nonfocal neuro examination. Cranial nerves II through XII grossly intact. Sensory and motor system is within normal limits. EXTREMITIES: No cyanosis, no clubbing, no edema. LABORATORY DATA: Includes as follows as of 11/18/2017 WBC 11, hemoglobin 12.4, hematocrit 32.7, platelets 202 sodium 130, potassium 5.5, chloride 103, CO2 25, BUN 32, creatinine 1.8, glucose 202. Calcium 8.8, phosphorus 4.6, magnesium 1.7, total bilirubin 0.5, AST 456, ALT 129, alkaline phosphatase 107, total protein 7.3, albumin is 3.6. Other laboratory data as of 11/17/2017 WBC 11.1, hemoglobin 12.5, hematocrit 37.5, platelets 244. At 01:55 a.m. on 11/17/2017, . As of 11/17/2017 at 9:32 was 74. As of 11/17/2017 at 2:56 a.m. was as of 11/17/2017 at 1:55 a.m. troponin was 0.113. As of 11/17/2017 at 2:56 a.m. sodium 141, potassium 5.2, chloride 108, CO2 21, BUN 20, creatinine 1.2, glucose 292 and calcium 8.1, phosphorus 2.2, magnesium 1.6, total bili 0.5, AST 1005, ALT 157, alkaline phosphatase is 123, CPK 9206, and CK-MB albumin is 3.7, cholesterol 168, triglycerides 146, LDL 140, HDL 34, TSH is 352 and free thyroxine is 1.06. Other reports echocardiogram as 11/17/2017 at 2:57 a.m., mild concentric LVH, systolic function is moderate to severely impaired, ejection fraction is 20 to 25%, there is moderate to severe hypokinesis of the anterior apical wall compatible with coronary artery disease; the right ventricle is moderately dilated with apical hypokinesis, but overall function appears preserved. Pericardium appears moderately thickened and hyperechoic lesion anterior to the right ventricle maybe, local atelectasis; follow up and clinical correlation suggested. Chest x-rays as of at 3:57 a.m., extensive right upper lobe infiltrate, medial right basilar infiltrate, no left sided infiltrate. Chest x-ray as of 11/18/2017, patchy to few infiltrate changes throughout the anterior lungs, possibly representing asymmetric CHF versus pneumonia, mild atelectasis and/or infiltrate changes in the left lung base. ASSESSMENT: In summary, Mr. De La Garza is a 67 years old elderly male with a history of hypertension, diabetes, hyperlipidemia, retroperitoneal fibrosis, bilateral ureteral stents was admitted with indigestion feeling since 9 p.m. on 11/16/2017 waited for 4 hours and decided to call EMS and found to have massive myocardial infarction and being treated for congestive heart failure and also with poor left ventricle function cardiac catheterization and status post stent in left anterior descending (coronary artery) distal with increased BUN and creatinine. 1. Acute myocardial infarction status post cardiac catheterization and stent placement in left anterior descending. 2. Intraaortic balloon pump placement. 3. Abnormal LFTs. 4. Nonoliguric acute renal failure, most likely multifactorial secondary to contrast or rhabdomyolysis secondary to acute myocardial infarction with really high CPK. 5. Cardiomyopathy. PLAN: Continue as per licensed prosthetist/orthotist Dr. James Hsieh. The patient is being transferred to for further management. Case was discussed with Dr. James Hsieh in rounds. Continue to monitor BMP and avoid nephrotoxic agents if possible. Thank you for allowing me to participate in your patient's care. Cici Mendoza MD
--- NOTE | 2017-11-20 16:28 | CARD ---
APPROVED REPORT EKG Measurement Heart [id number] <Conclusion> Sinus tachycardia with frequent premature ventricular complexes with junctional escape complexes Low voltage QRS st elevation in v2 to v5 suggestive of recent anterior mi. Left anterior fascicular block Abnormal ECG suggest serial ekgs,
--- NOTE | 2017-11-20 16:29 | CARD ---
APPROVED REPORT EKG Measurement Heart [id number] <Conclusion> Sinus tachycardia Low voltage QRS Borderline ECG anterior wall mi,age undetermined,probably recent
--- NOTE | 2017-11-20 16:30 | CARD ---
APPROVED REPORT EKG Measurement Heart [id number] <Conclusion> Suspect arm lead reversal, interpretation assumes no reversal Sinus tachycardia Right ventricular hypertrophy with repolarization abnormality Lateral infarct, age undetermined baseline artifacts. plewase repeat., Abnormal ECG
== END 2017-11-18 14:30 | disposition short-term general hospital (02) | DRG 270 ==
LOC: C.ER 01:41 → C.9I 02:13
PROVIDERS: ADMIT Internal Medicine; ATTEND Internal Medicine
PROC: 027034Z Dilation of Coronary Artery, One Artery with Drug-eluting Intraluminal Device, Percutaneous Approach (ICD-10-PCS; principal; 2017-11-17)
PROC: 5A02210 Assistance with Cardiac Output using Balloon Pump, Continuous (ICD-10-PCS; 2017-11-17)
PROC: 5A09357 Assistance with Respiratory Ventilation, Less than 24 Consecutive Hours, Continuous Positive Airway Pressure (ICD-10-PCS; 2017-11-17)
PROC: 4A023N7 Measurement of Cardiac Sampling and Pressure, Left Heart, Percutaneous Approach (ICD-10-PCS; 2017-11-17)
PROC: B2111ZZ Fluoroscopy of Multiple Coronary Arteries using Low Osmolar Contrast (ICD-10-PCS; 2017-11-17)
DX: I21.09 ST elevation (STEMI) myocardial infarction involving other coronary artery of anterior wall (principal); I50.21 Acute systolic (congestive) heart failure; K72.00 Acute and subacute hepatic failure without coma; R57.0 Cardiogenic shock; J96.00 Acute respiratory failure, unspecified whether with hypoxia or hypercapnia; I47.2 Ventricular tachycardia; I42.0 Dilated cardiomyopathy; N17.9 Acute kidney failure, unspecified; I11.0 Hypertensive heart disease with heart failure; E11.9 Type 2 diabetes mellitus without complications; Z86.718 Personal history of other venous thrombosis and embolism; Z87.891 Personal history of nicotine dependence; R01.1 Cardiac murmur, unspecified; I25.5 Ischemic cardiomyopathy; Z87.442 Personal history of urinary calculi; Z88.0 Allergy status to penicillin; Z91.018 Allergy to other foods; N13.5 Crossing vessel and stricture of ureter without hydronephrosis; E78.5 Hyperlipidemia, unspecified; E66.9 Obesity, unspecified; Z68.32 Body mass index [BMI] 32.0-32.9, adult; R94.5 Abnormal results of liver function studies; D64.89 Other specified anemias; E87.5 Hyperkalemia; J44.9 Chronic obstructive pulmonary disease, unspecified